=== PATIENT | female | born 1950 | race American Indian/Alaskan Native ===

== ENCOUNTER 2017-11-18 05:58 | Inpatient (IN) | payer MEDICARE ==
[2017-10-29 10:25] VITALS: BMI 23.8
[2017-11-18] MEDS ORDERED: Bupivacaine Liposomal Inj 20 ml INFIL ONE (07:29)
--- NOTE | 2017-11-18 07:33 | CP.PCM.HP ---
History of Present Illness - History of Present Illness History of Present Illness: 67F complains of right knee pain s/p TKR 09/21/2013, found to have radiographic loosening but negative septic workup, presents for revision TKR vs explant/ antibiotic spacer. No history of bleeding/clotting disorder, CAD/CVA/TIA/stent/seizure disorder Present on Admission - Present on Admission Any Indicators Present on Admission: No Past Patient History - Past Medical History & Family History Past Medical History?: Yes - Past Social History Smoking Status: Never Smoked - CARDIAC Hx Cardiac Disorders: Yes Hx Hypertension: Yes Hx Hypotension: Yes - PULMONARY Hx Respiratory Disorders: No - NEUROLOGICAL Hx Neurological Disorder: No - HEENT Hx HEENT Problems: No - RENAL Hx Chronic Kidney Disease: No - ENDOCRINE/METABOLIC Hx Endocrine Disorders: No - HEMATOLOGICAL/ONCOLOGICAL Hx Blood Disorders: No - INTEGUMENTARY Hx Dermatological Problems: No - MUSCULOSKELETAL/RHEUMATOLOGICAL Hx Musculoskeletal Disorders: Yes Hx Osteoarthritis: Yes Other/Comment: HX: INFECTION RIGHT KNEE ; RIGHT KNEE OA - GASTROINTESTINAL Hx Gastrointestinal Disorders: No - GENITOURINARY/GYNECOLOGICAL Hx Genitourinary Disorders: No - PSYCHIATRIC Hx Psychophysiologic Disorder: No - SURGICAL HISTORY Hx Surgeries: Yes Hx Section: Yes Hx Joint Replacement: Yes (RIGHT TOTAL KNEE REPLACEMENT ) - ANESTHESIA Hx Anesthesia: Yes Hx Anesthesia Reactions: No Hx Malignant Hyperthermia: No Has any member of the family had a problem w/ anesthesia?: No Meds Allergies/Adverse Reactions: Allergies Allergy/AdvReac Type Severity Reaction Status Date / Time No Known Allergies Allergy Verified 03/03/13 11:28 Physical Exam - Constitutional Appears: Well, No Acute Distress - Head Exam Head Exam: ATRAUMATIC, NORMAL INSPECTION - Respiratory Exam Respiratory Exam: NORMAL BREATHING PATTERN - Extremities Exam Additional comments: +ROM ankle/toes, sensation intact +DP/PT pulses calves soft NT neg homans incision intact well healed - Neurological Exam Neurological exam: Alert, Oriented x3 - Psychiatric Exam Psychiatric exam: Normal Affect, Normal Mood - Skin Skin Exam: Dry, Intact, Normal Color, Warm Results - Vital Signs Recent Vital Signs: Last Vital Signs Temp 97.7 F 11/18/17 06:19 Pulse 78 11/18/17 06:19 Resp 18 11/18/17 06:19 BP 145/76 11/18/17 06:19 Pulse Ox 100 11/18/17 06:19 Assessment & Plan (1) Periprosthetic osteolysis of internal prosthetic right knee joint Assessment and Plan: r/o aseptic vs infection NPO T&S for OR risks benefits alt explained to patient, patient verbalized understanding, consents to procedure Status: Acute
[2017-11-18] MEDS ORDERED: Propofol 10 mg/ml Inj (20 ML) ONE (08:01)
[2017-11-18] MEDS ORDERED: Midazolam 2 MG/2 ML VIAL ONE (08:01)
[2017-11-18] MEDS ORDERED: ceFAZolin IV 2 gm in Dextrose 0 GM/0 ML BAG IVPB ONE (08:14)
[2017-11-18] MEDS ORDERED: Tranexamic Acid 1,000 MG in Sodium Chloride 0.9% 50 ML IV SCH (08:15)
[2017-11-18] MEDS ORDERED: Clindamycin 600mg/50ml NS 600 MG/50 ML BAG IVPB ONE (08:49)
[2017-11-18] MEDS ORDERED: Sodium Chloride 0.9% 60 ML IV ONE (08:59)
[2017-11-18] MEDS: Bacitracin 150,000 UNIT in Sodium Chloride 0.9% Irrig 3,000 ML IR SCH ×2 (09:15→09:45)
[2017-11-18] MEDS: Tobramycin 1.2 gm Inj ONE ×2 (11:15→11:45)
[2017-11-18] MEDS: Vancomycin 1 g Inj ONE ×4 (11:15→11:45)
[2017-11-18] MEDS ORDERED: Bacitracin 150,000 UNIT in Sodium Chloride 0.9% Irrig 3,000 ML IR SCH (11:15)
[2017-11-18] MEDS ORDERED: Morphine 4 MG/ML VIAL ONE (11:17)
[2017-11-18] MEDS ORDERED: Rocuronium 10 mg/ml (10 ml) ONE (11:32)
[2017-11-18] MEDS ORDERED: HYDROmorphone 0.5 mg/0.5 ml ISec IVP PRN (12:21)
[2017-11-18 12:33] LABS: HEPATITIS B SURFACE AG Negative (NEGATIVE)
[2017-11-18] MEDS ORDERED: Neostigmine Methylsulfate 3mg/3ml Syringe IV ONE (12:38)
[2017-11-18 12:39] LABS: HEPATITIS A IGM NEGATIVE (NEGATIVE); HEPATITIS B CORE AB NEGATIVE (NEGATIVE)
[2017-11-18] MEDS ORDERED: Bupivacaine HCl 0.25% PF (10 ml) Inj ONE ×2 (12:46)
[2017-11-18 12:50] LABS: HEPATITIS C ANTIBODY NEGATIVE (NEGATIVE)
--- NOTE | 2017-11-18 13:52 | PCM.SURG1 ---
Surgeon's Initial Post Op Note - Surgeon's Notes Surgeon: Maria G Clancy MD Fraud Investigator: Alee Fraser PA-C Type of Anesthesia: General Endo Anesthesia Administered By: Dr. 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
[2017-11-18] MEDS ORDERED: Sodium Chloride 0.9% 1,000 ML IV SCH (14:00)
--- NOTE | 2017-11-18 14:14 | PCM.ANESB7 ---
Adductor Canal Block - Adductor Canal Block Date of Procedure: 11/18/17 Anesthiologist: Diana Marino Pre-Procedure Diagnosis: s/p right knee replacement Post-Procedure Diagnosis: right knee replacement revision Procedure Performed: Adductor Canal Block Right - Procedure Adductor Canal Block: The procedure was explained to the patient that it is for the post-operative pain management. Consent was obtained after a thorough discussion with the patient regarding the benefits and possible complications of local anesthetic adductor canal block of the femoral nerve. Standard monitors, as defined by the ASA, were applied to the patient. Time-out was held with the RR nurse to confirm the appropriate block. After applying supplemental oxygen, the patient was placed in supine position with and the operative leg was kept anatomically stable. The mid-thigh of the right lower extremity was exposed. The ultrasound transducer was then applied transversely along the medial aspect, about midway down the thigh and the femoral artery and vein were identified in appropriate relation with the sartorius muscle. At this time, the femoral nerve was visualized lateral to the femoral artery within the canal. After thorough identification, this area area was prepped with Chloroprep solution three times and 1 % Lidocaine was injected subcutaneously for topical anesthesia. At this point, a #22 gauge Stimuplex 4-inch needle was inserted in-plane in a [id number] orientation, and advanced toward the femoral nerve. Advancement was performed carefully under direct ultrasound visualization. After negative aspiration, __30___cc of 0.25_% Bupivacaine_was injected. Under ultrasound guidance the local anesthetics were observed spreading around the femoral nerve. The needle was removed intact and sterile dressing was applied. The patient had stable vital signs, was conscious and in no apparent distress. The patient tolerated the femoral nerve block well with stable vital signs.
[2017-11-18] MEDS: Oxycodone/Acetaminophen 5/325 mg Tab PO PRN (18:21)
[2017-11-18] MEDS: ceFAZolin IV 2 gm in Dextrose 2 GM/50 ML BAG IVPB SCH ×2 (18:21→22:04)
--- NOTE | 2017-11-18 20:27 | CP.PCM.CON ---
History of Present Illness - History of Present Illness History of Present Illness: INFECTIOUS DISEASE CONSULT; HPI 67F complains of right knee pain s/p TKR 09/21/2013, found to have radiographic loosening but negative septic workup, presents for revision TKR vs explant/ antibiotic spacer. No history of bleeding/clotting disorder, CAD/CVA/TIA/stent/seizure disorder, DM. PATIENT DOES HAVE HISTORY OF OSTEOARTHRITIS. HX LIMITED PATIENT DROWSY POSTOPERATIVELY. PATIENT IS STATUS POST RIGHT TKR AND EXPLANT AND PLACEMENT OF ANTIBIOTIC SPACER RIGHT KNEE ON 11/18/17. REPORTED BY THE STAFF, PATIENT RECEIVED 1 DOSE OF rOCEPHIN 1 G, CLINDAMYCIN 600 MG ONE DOSE IN OR AND PRESENTLY STARTED ON ANCEF 2 G EVERY 8 HOURLY. INFECTIOUS DISEASE CONSULTATION REQUESTED BY orthopedic surgeon DR. MARIELLA BARAHONA. PMH; ABOVE. SH ; NO HISTORY OF SMOKING OR DRINKING. NO HX OF SUBSTANCE ABUSE. lIVES WITH FAMILY HER . ALLERGIES; NKA. MEDS ; SEE MARS. on Ancef 2 g IV piggyback every 8 hourly1. Review of Systems - Review of Systems Systems not reviewed;Unavailable: Altered Mental Status, Other (POSTOPERATIVE DROWSY.) Past Patient History - Past Medical History & Family History Past Medical History?: Yes - Past Social History Smoking Status: Never Smoked - CARDIAC Hx Cardiac Disorders: Yes Hx Hypertension: Yes Hx Hypotension: Yes - PULMONARY Hx Respiratory Disorders: No - NEUROLOGICAL Hx Neurological Disorder: No - HEENT Hx HEENT Problems: No - RENAL Hx Chronic Kidney Disease: No - ENDOCRINE/METABOLIC Hx Endocrine Disorders: No - HEMATOLOGICAL/ONCOLOGICAL Hx Blood Disorders: No - INTEGUMENTARY Hx Dermatological Problems: No - MUSCULOSKELETAL/RHEUMATOLOGICAL Hx Musculoskeletal Disorders: Yes Hx Falls: No Hx Osteoarthritis: Yes Other/Comment: HX: INFECTION RIGHT KNEE ; RIGHT KNEE OA - GASTROINTESTINAL Hx Gastrointestinal Disorders: No - GENITOURINARY/GYNECOLOGICAL Hx Genitourinary Disorders: No - PSYCHIATRIC Hx Psychophysiologic Disorder: No Hx Substance Use: No - SURGICAL HISTORY Hx Surgeries: Yes Hx Section: Yes Hx Joint Replacement: Yes (RIGHT TOTAL KNEE REPLACEMENT ) - ANESTHESIA Hx Anesthesia: Yes Hx Anesthesia Reactions: No Hx Malignant Hyperthermia: No Has any member of the family had a problem w/ anesthesia?: No Meds Allergies/Adverse Reactions: Allergies Allergy/AdvReac Type Severity Reaction Status Date / Time No Known Allergies Allergy Verified 03/03/13 11:28 - Medications Medications: Current Medications Acetaminophen (Tylenol 325mg Tab) 650 mg PO Q4 PRN PRN Reason: Fever 101 degrees fahrenheit Amlodipine Besylate (Norvasc) 10 mg PO DAILY [facility] Docusate Sodium (Colace) 100 mg PO BID [facility] Last Admin: 11/18/17 18:21 Dose: 100 mg Enoxaparin Sodium (Lovenox) 40 mg SC DAILY [facility] Hydrochlorothiazide (Microzide) 12.5 mg PO DAILY [facility] Hydromorphone HCl (Dilaudid) 0.5 mg IVP Q4H PRN PRN Reason: Pain, severe (8-10) Cefazolin Sodium/Dextrose (Ancef Iv 2 Gm Duplex) 2 gm in 50 mls @ 100 mls/hr IVPB Q8H [facility] Stop: 11/18/17 23:29 Last Admin: 11/18/17 18:21 Dose: 100 mls/hr Sodium Chloride (Sodium Chloride 0.9%) 1,000 mls @ 50 mls/hr IV .Q20H [facility] Stop: 11/19/17 09:59 Losartan Potassium (Cozaar) 50 mg PO DAILY [facility] [place] Multivitamins (Hexavitamin) 1 tab PO DAILY [facility] Oxycodone/Acetaminophen (Percocet 5/325 Mg Tab) 1 tab PO Q4 PRN PRN Reason: Pain, moderate (4-7) Stop: 11/21/17 13:56 Last Admin: 11/18/17 18:21 Dose: 1 tab Rosuvastatin Calcium (Crestor) 10 mg PO [facility] Physical Exam - Constitutional Appears: No Acute Distress - Head Exam Head Exam: NORMAL INSPECTION - Eye Exam Eye Exam: PERRL - ENT Exam ENT Exam: Mucous Membranes Dry - Neck Exam Neck exam: Positive for: Normal Inspection - Respiratory Exam Respiratory Exam: Clear to Auscultation Bilateral, Prolonged Expiratory Phase ( may) - Cardiovascular Exam Cardiovascular Exam: REGULAR RHYTHM, +S1, +S2 (ALCOHOL ON MIDLINE WITHOUT iN HIS USUAL. aNALGESICS.) - GI/Abdominal Exam GI & Abdominal Exam: Normal Bowel Sounds, Soft - Extremities Exam Extremities exam: Negative for: calf tenderness (RT LEG POST OPERATIVE soft cast.) - Neurological Exam Neurological exam: Altered (drowsy postoperative period) - Psychiatric Exam Psychiatric exam: Flat Affect - Skin Skin Exam: Normal Color, Warm Results - Vital Signs Recent Vital Signs: Last Vital Signs Temp 98.1 F 11/18/17 17:14 Pulse 80 11/18/17 17:14 Resp 20 11/18/17 17:14 BP 97/52 L 11/18/17 17:14 Pulse Ox 100 11/18/17 17:14 - Labs Labs: Laboratory Results - last 24 hr 11/18/17 11/18/17 11/18/17 07:16 11:27 11:27 RPR Nonreactive Hepatitis A IgM Ab Negative Hep Bs Antigen Negative Hep Bs Antibody Hep B Core IgM Ab Negative Hepatitis C Antibody Negative HIV 1&2 Antibody Screen Blood Type O POSITIVE Antibody Screen Negative 11/18/17 11/18/17 11:27 11:27 RPR Hepatitis A IgM Ab Hep Bs Antigen Hep Bs Antibody Negative Hep B Core IgM Ab Hepatitis C Antibody HIV 1&2 Antibody Screen Negative Blood Type Antibody Screen Assessment & Plan (1) Aftercare following explantation of joint prosthesis, staged procedure Status: Acute (2) Periprosthetic osteolysis of internal prosthetic right knee joint Status: Acute - Assessment and Plan (Free Text) Assessment: IMPRESSION; RT.TKR/PROSTHETIC JOINT INFECTION/OSTEOLYSES OF THE JOINT. S/P EXPLANTATION AND PLACEMENT OF ANTIBIOTIC SPACER RT. KNEE. 11/18/17. PLAN; PANCULTURES. ESR CRP. LFT. UA/URINE CULTURES TISSUE CULTURES RIGHT KNEE PENDING. DISCONTINUE iv ANCEF. CONTINUE iv ROCEPHIN 1 G EVERY 12 HOURLY 11/18/17 fOR BROADER GRAM-NEGATIVE COVERAGE ADD IV VANCOMYCIN 1 G EVERY 24 HOURLY FOR STAPH/AND MRSA COVERAGE. FOLLOW-UP TISSUE CULTURES FROM RIGHT KNEE OPERATIVELY. WILL FOLLOW ALONG WITH YOU AND MAKE FURTHER RECOMMENDATIONS NEEDED. CASE DISCUSSED WITH THE STAFF. AGREE WITH PICC LINE PLACEMENT.
--- NOTE | 2017-11-19 00:20 | OP ---
PROCEDURE DATE: 11/18/2017 PREOPERATIVE DIAGNOSIS: Status post failed right total knee replacement with possible infection. POSTOPERATIVE DIAGNOSIS: Infected right total knee arthroplasty. PROCEDURE: Explant of right total knee arthroplasty, irrigation and debridement and insertion of antibiotic spacer. SURGEON: Félix Clancy MD. FANS CLERK: Dr. Clancy was assisted by Ana Fraser PA-C. Ms. Fraser was scrubbed and present throughout the entire case and assisted in patient positioning, retraction and wound closure. TYPE OF ANESTHESIA: General. COMPLICATIONS: None. ESTIMATED BLOOD LOSS: 250 mL. TOURNIQUET TIME: 140 minutes at 300 mmHg. INDICATIONS FOR THE PROCEDURE: This is a 67-year-old female, who approximately little longer than 4 years ago underwent a right total knee replacement. Postoperatively, patient developed some arthrofibrosis with some loss of range of motion. She subsequently was recently seen with complaints of right knee pain again and loss of range of motion. Radiographically, patient was noted to have some osteolysis around the femoral component. Preoperative was questionable for infection and recommendations were for removal of the implant with an intraoperative biopsy and possible reimplantation versus antibiotic spacer. The risks, benefits and alternatives of the procedures were discussed with the patient and informed consent was obtained. DESCRIPTION OF PROCEDURE: After surgical site was finally verified in the preoperative holding area, the patient was taken to the operating room and placed supine on the operating room table. After administration of general anesthesia, patient received 1 g of Rocephin and 600 mg of clindamycin IV. Medrano catheter was inserted. Tourniquet was placed about the right thigh. Care was taken to make sure all bony prominences and nerves were well padded and protected and the right lower extremity was prepped and draped in usual sterile fashion. Previous incision was re-incised and medial parapatellar arthrotomy was performed. No significant fluid was appreciated. No gross purulence was appreciated. At this point, using a combination of osteotomes and rongeur, the previous implant was removed. Three deep soft tissue biopsies were done, one underneath the medial femoral component, one posterior to the patellar component as well as one on the tibia, these were passed off for frozen section. In the interim, while awaiting for these results, debridement was performed, removing any nonviable-appearing tissue or any loose cement. Patellar component was also removed. At this point, call from the pathology department determined that in one of the frozen sections, there were 12 neutrophils per high-power filed. At this point, recommendation was made for insertion of an antibiotic spacer for possible staged reimplantation. On the back table, an antibiotic spacer was prepared using vancomycin, gentamicin and tobramycin powder. Once the spacer had been made, a static spacer was inserted and at this point the tourniquet was inflated, any obvious bleeding was cauterized. The arthrotomy was closed using #1 Vicryl suture. The subcutaneous tissue was closed using 0 Vicryl and 2-0 Vicryl suture and the skin was closed using 3-0 nylon. A ANGEL dressing was applied and a knee immobilizer was placed. Patient was awakened from the procedure, taken to the recovery room in stable condition. Félix Clancy MD
[2017-11-19 02:19] LABS: SQUAMOUS EPITHIAL < 1 /hpf (0-5); URINE BACTERIA RARE (<OCC); URINE BILIRUBIN NEGATIVE (NEGATIVE); URINE BLOOD 2+ (NEGATIVE); URINE COLOR Yellow (YELLOW); URINE GLUCOSE (UA) NORMAL (Normal); URINE LEUKOCYTE ESTERASE NEG Leu/uL (Negative); URINE NITRATE NEGATIVE (NEGATIVE); URINE PROTEIN 1+ mg/dL (NEGATIVE); URINE UROBILINOGEN NORMAL mg/dL (0.2-1.0)
[2017-11-19 02:28] LABS: URINE CLARITY Hazy (Clear)
[2017-11-19 07:29] LABS: MEAN CORPUSCULAR HEMOGLOBIN 25.5 pg (27.0-31.0); MEAN CORPUSCULAR HGB CONC 32.7 g/dL (33.0-37.0); MEAN PLATELET VOLUME 7.6 fL (7.2-11.7); RBC 2.73 Mil/uL (3.80-5.20); RED CELL DISTRIBUTION WIDTH 15.4 % (11.5-14.5)
[2017-11-19 07:30] LABS: MEAN CELL VOLUME 77.8 fL (81.0-99.0); WHITE BLOOD COUNT 8.2 K/uL (4.8-10.8)
[2017-11-19 08:10] LABS: ALB/GLOB RATIO 0.9 (1.0-2.1); ALT/SGPT 25 U/L (9-52); AST/SGOT 41 U/L (14-36); BILIRUBIN,DIRECT 0.2 mg/dL (0.0-0.4); BLOOD UREA NITROGEN 11 mg/dL (7-17); CALCIUM 8.3 mg/dl (8.6-10.4); GFR AFRICAN-AMERICAN > 60; GFR NON-AFRICAN AMERICAN > 60
[2017-11-19] MEDS: Vancomycin 1 gm/NS 200 ml 1 GM/200 ML BAG IVPB SCH (09:30)
[2017-11-19] MEDS: Enoxaparin 40 mg Syringe SC SCH ×2 (09:56→10:04)
[2017-11-19] MEDS: Multiple Vitamins Tab PO SCH (09:56)
--- NOTE | 2017-11-19 10:43 | CP.PCM.PN ---
Subjective - Date & Time of Evaluation Date of Evaluation: 11/19/17 Time of Evaluation: 10:42 - Subjective Subjective: Pt awake, alert. Adequate pain control. VSS RLE: immobilizer in place ANGEL dressing with good seal NVI distally Hg 7.0 POD#1 Transfuse 2 units PRBCs follow OR cultures will likely need PIC line d/c planning Objective - Vital Signs/Intake and Output Vital Signs (last 24 hours): Temp Pulse Resp BP Pulse Ox 98.4 F 78 20 132/70 100 11/19/17 08:34 11/19/17 08:34 11/19/17 08:34 11/19/17 10:00 11/19/17 08:34 Intake and Output: 11/19/17 11/19/17 06:59 18:59 Intake Total 500 Output Total 400 Balance 100 - Medications Medications: Current Medications Acetaminophen (Tylenol 325mg Tab) 650 mg PO Q4 PRN PRN Reason: Fever 101 degrees fahrenheit Amlodipine Besylate (Norvasc) 10 mg PO DAILY [facility] Last Admin: 11/19/17 09:57 Dose: 10 mg Docusate Sodium (Colace) 100 mg PO BID [facility] Last Admin: 11/19/17 09:57 Dose: 100 mg Enoxaparin Sodium (Lovenox) 40 mg SC DAILY [facility] Last Admin: 11/19/17 10:04 Dose: Not Given Hydrochlorothiazide (Microzide) 12.5 mg PO DAILY [facility] Last Admin: 11/19/17 09:57 Dose: 12.5 mg Hydromorphone HCl (Dilaudid) 0.5 mg IVP Q4H PRN PRN Reason: Pain, severe (8-10) Ceftriaxone Sodium 1 gm/ (Sodium Chloride) 100 mls @ 100 mls/hr IVPB Q12H [facility] Last Admin: 11/19/17 00:45 Dose: 100 mls/hr Vancomycin/Sodium Chloride (Vancomycin 1 Gm/Ns 200 Ml) 1 gm in 200 mls @ 133 mls/hr IVPB Q24H [facility] Stop: 11/24/17 10:31 Losartan Potassium (Cozaar) 50 mg PO DAILY [facility] Last Admin: 11/19/17 09:57 Dose: 50 mg Multivitamins (Hexavitamin) 1 tab PO DAILY [facility] Last Admin: 11/19/17 09:56 Dose: 1 tab Oxycodone/Acetaminophen (Percocet 5/325 Mg Tab) 1 tab PO Q4 PRN PRN Reason: Pain, moderate (4-7) Stop: 11/21/17 13:56 Last Admin: 11/18/17 18:21 Dose: 1 tab Rosuvastatin Calcium (Crestor) 10 mg PO HS [facility] - Labs Labs: 11/19/17 07:23 11/19/17 07:23
[2017-11-19 11:31] LABS: HEMOGLOBIN 7.3 g/dL (11.0-16.0); MEAN CELL VOLUME 78.1 fL (81.0-99.0); MEAN CORPUSCULAR HEMOGLOBIN 25.2 pg (27.0-31.0); MEAN CORPUSCULAR HGB CONC 32.2 g/dL (33.0-37.0); MEAN PLATELET VOLUME 8.2 fL (7.2-11.7); RBC 2.88 Mil/uL (3.80-5.20); RED CELL DISTRIBUTION WIDTH 15.4 % (11.5-14.5)
--- NOTE | 2017-11-19 12:35 | RAD ---
HISTORY: verify right PICC COMPARISON: Chest x-ray performed 11/19/17 at 7:46 a.m. TECHNIQUE: Chest, one view. FINDINGS: Right-sided PICC extends expected location of the SVC. LUNGS: Linear atelectasis, left lung base. Mild biapical pleural thickening. No focal consolidation. Please note that chest x-ray has limited sensitivity for the detection of pulmonary masses. PLEURA: No significant pleural effusion identified. No definite pneumothorax . CARDIOVASCULAR: Heart size appears top normal. OSSEOUS STRUCTURES: No acute osseous abnormality identified. VISUALIZED UPPER ABDOMEN: Unremarkable. OTHER FINDINGS: None. IMPRESSION: Right-sided PICC extends to the expected location of the SVC. Linear atelectasis, left lung base. Mild biapical pleural thickening.
--- NOTE | 2017-11-19 13:26 | RAD ---
HISTORY: BASELINE COMPARISON: Chest radiograph dated 10/29/2017. FINDINGS: LUNGS: No active pulmonary disease. PLEURA: No significant pleural effusion identified, no pneumothorax apparent. CARDIOVASCULAR: No sclerotic aortic calcifications. Cardiomediastinal silhouette stably enlarged. OSSEOUS STRUCTURES: Unchanged. VISUALIZED UPPER ABDOMEN: Normal. OTHER FINDINGS: None. IMPRESSION: No active disease.
--- NOTE | 2017-11-19 13:55 | RAD ---
PROCEDURE: Right Knee Radiographs. HISTORY: s/p prosthesis removal COMPARISON: 09/21/2013 FINDINGS: BONES: No acute fracture. Status post removal of right knee prosthesis. There is temporary cement mass seen at the joint status post removal of prosthesis. There is thick periosteal reaction seen along the distal lateral femoral cortex, nonspecific. There is fluid in the region of the suprapatellar bursa as well as intra-articular gas consistent with recent surgery. JOINTS: As above JOINT EFFUSION: As above OTHER FINDINGS: None. IMPRESSION: Status post removal of right knee prosthesis with temporary cement remaining in the joint. Other postoperative changes. Thick periosteal reaction along the distal lateral femoral cortex, nonspecific.
[2017-11-19] MEDS ORDERED: Ergocalciferol 50,000 Intl Units Cap PO SCH (16:30)
[2017-11-19] MEDS: Oxycodone/Acetaminophen 5/325 mg Tab PO PRN (18:15)
--- NOTE | 2017-11-19 20:44 | CP.PCM.PN ---
Subjective - Date & Time of Evaluation Date of Evaluation: 11/19/17 Time of Evaluation: 20:44 - Subjective Subjective: # POD 1 PATIENT AWAKE AND ALERT, TMAX 100.3 VSS PAIN UNDER CONTROL RIGHT LOWER EXTREMITY IMMOBILIZER IN PLACE. H/H - DROPPED TO 7.3. PATIENT FOR BLOOD TRANSFUSION 2 UNITS PER dR. BARAHONA S/P PICC LINE -RIGHT UPPER ARM .LABS; wbc 9.0 PLATELETS ADEQUATE cREATININE 0.6/bun 11 25-HYDROXY VITAMIN A 26.4 LOW lftS NORMAL. TISSUE CULTURE NEGATIVE GROWTH FOR 24 HOURS. PATIENT ON iv ANTIBIOTICS EMPIRICALLY IV CEFTRIAXONE 1 G EVERY 12 HOURLY-11/18/17 IV VANCOMYCIN 1 G EVERY 24 HOURLY.- 11/18/17. Objective - Vital Signs/Intake and Output Vital Signs (last 24 hours): Temp Pulse Resp BP Pulse Ox 100.3 F H 92 H 20 164/65 H 100 11/19/17 18:50 11/19/17 15:49 11/19/17 15:49 11/19/17 15:49 11/19/17 15:49 Intake and Output: 11/19/17 11/20/17 18:59 06:59 Intake Total 600 Output Total 580 Balance 20 - Medications Medications: Current Medications Acetaminophen (Tylenol 325mg Tab) 650 mg PO Q4 PRN PRN Reason: Fever 101 degrees fahrenheit Last Admin: 11/19/17 18:50 Dose: 650 mg Amlodipine Besylate (Norvasc) 10 mg PO DAILY [facility] Last Admin: 11/19/17 09:57 Dose: 10 mg Docusate Sodium (Colace) 100 mg PO BID [facility] Last Admin: 11/19/17 18:14 Dose: 100 mg Enoxaparin Sodium (Lovenox) 40 mg SC DAILY [facility] Last Admin: 11/19/17 10:04 Dose: Not Given Ergocalciferol (Drisdol 50,000 Intl Units Cap) 1 cap PO Q7D [facility] Last Admin: 11/19/17 18:15 Dose: 1 cap Hydrochlorothiazide (Microzide) 12.5 mg PO DAILY [facility] Last Admin: 11/19/17 09:57 Dose: 12.5 mg Hydromorphone HCl (Dilaudid) 0.5 mg IVP Q4H PRN PRN Reason: Pain, severe (8-10) Ceftriaxone Sodium 1 gm/ (Sodium Chloride) 100 mls @ 100 mls/hr IVPB Q12H [facility] Last Admin: 11/19/17 10:30 Dose: 100 mls/hr Vancomycin/Sodium Chloride (Vancomycin 1 Gm/Ns 200 Ml) 1 gm in 200 mls @ 133 mls/hr IVPB Q24H [facility] Stop: 11/24/17 10:31 Last Admin: 11/19/17 09:30 Dose: 133 mls/hr Losartan Potassium (Cozaar) 50 mg PO DAILY [facility] Last Admin: 11/19/17 09:57 Dose: 50 mg Multivitamins (Hexavitamin) 1 tab PO DAILY [facility] Last Admin: 11/19/17 09:56 Dose: 1 tab Oxycodone/Acetaminophen (Percocet 5/325 Mg Tab) 1 tab PO Q4 PRN PRN Reason: Pain, moderate (4-7) Stop: 11/21/17 13:56 Last Admin: 11/19/17 18:15 Dose: 1 tab Rosuvastatin Calcium (Crestor) 10 mg PO HS [facility] - Labs Labs: 11/19/17 11:20 11/19/17 07:23 - Constitutional Appears: No Acute Distress - Head Exam Head Exam: NORMAL INSPECTION - Eye Exam Eye Exam: EOMI, PERRL - ENT Exam ENT Exam: Normal Oropharynx - Neck Exam Neck Exam: Normal Inspection - Respiratory Exam Respiratory Exam: Clear to Ausculation Bilateral - Cardiovascular Exam Cardiovascular Exam: REGULAR RHYTHM, +S1, +S2 - GI/Abdominal Exam GI & Abdominal Exam: Soft, Normal Bowel Sounds - Neurological Exam Neurological Exam: Awake, CN II-XII Intact, Oriented x3 - Psychiatric Exam Psychiatric exam: Normal Mood - Skin Skin Exam: Pallor, Warm Assessment and Plan (1) Aftercare following explantation of joint prosthesis, staged procedure Status: Acute (2) Periprosthetic osteolysis of internal prosthetic right knee joint Status: Acute - Assessment and Plan (Free Text) Plan: IMPRESSION; -RT.TKR/PROSTHETIC JOINT INFECTION/OSTEOLYSES OF THE JOINT. -S/P EXPLANTATION AND PLACEMENT OF ANTIBIOTIC SPACER RT. KNEE. 11/18/17. - HX HTN. - HYPERCHOLESTEROLEMIA. -OSTEOARTHRITIS B/L KNEES. -VITAMIN d DEFICIENCY. PLAN; FOR BLOOD TRANSFUSION 2 UNITS PRBCS TODAY. TISSUE CULTURES RIGHT KNEE- PENDING. CONTINUE iv ROCEPHIN 1 G EVERY 12 HOURLY 11/18/17 fOR BROADER GRAM-NEGATIVE COVERAGE ADD IV VANCOMYCIN 1 G EVERY 24 HOURLY FOR STAPH/AND MRSA COVERAGE. WILL NEED VITAMIN d SUPPLEMENT 50,000 UNITS 1 TABLET WEEKLY X 3 MONTHS WILL DISCUSS WITH Irene NORTH IF PATIENT EVER HAD MRSA -INFECTION/OR COLONIZATION. WILL FOLLOW ALONG WITH YOU AND MAKE FURTHER RECOMMENDATIONS NEEDED.
[2017-11-20] MEDS: Enoxaparin 40 mg Syringe SC SCH (09:40)
[2017-11-20] MEDS: Vancomycin 1 gm/NS 200 ml 1 GM/200 ML BAG IVPB SCH (09:40)
[2017-11-20] MEDS: Multiple Vitamins Tab PO SCH (09:40)
[2017-11-20] MEDS: Oxycodone/Acetaminophen 5/325 mg Tab PO PRN (09:43)
[2017-11-20 11:31] LABS: MEAN CELL VOLUME 79.1 fL (81.0-99.0); MEAN CORPUSCULAR HEMOGLOBIN 26.6 pg (27.0-31.0); MEAN CORPUSCULAR HGB CONC 33.7 g/dL (33.0-37.0); MEAN PLATELET VOLUME 7.9 fL (7.2-11.7); RBC 3.71 Mil/uL (3.80-5.20); WHITE BLOOD COUNT 11.3 K/uL (4.8-10.8)
[2017-11-20 11:36] LABS: HEMOGLOBIN 9.9 g/dL (11.0-16.0)
[2017-11-20 11:45] LABS: ALB/GLOB RATIO 0.9 (1.0-2.1); ALBUMIN 3.2 g/dL (3.5-5.0); ALT/SGPT 25 U/L (9-52); AST/SGOT 35 U/L (14-36); BILIRUBIN,DIRECT 0.3 mg/dL (0.0-0.4); BLOOD UREA NITROGEN 6 mg/dL (7-17); CALCIUM 8.5 mg/dl (8.6-10.4); GFR AFRICAN-AMERICAN > 60; GFR NON-AFRICAN AMERICAN > 60
--- NOTE | 2017-11-20 13:35 | CP.PCM.PN ---
Subjective - Date & Time of Evaluation Date of Evaluation: 11/20/17 Time of Evaluation: 13:32 - Subjective Subjective: Patient states pain is well controlled. Denies CP/SOB/dizziness. Objective - Vital Signs/Intake and Output Vital Signs (last 24 hours): Temp Pulse Resp BP Pulse Ox 98.1 F 79 20 144/71 100 11/20/17 07:50 11/20/17 07:50 11/20/17 07:50 11/20/17 07:50 11/20/17 00:00 Intake and Output: 11/20/17 11/20/17 06:59 18:59 Intake Total 1210 325 Balance 1210 325 - Medications Medications: Current Medications Acetaminophen (Tylenol 325mg Tab) 650 mg PO Q4 PRN PRN Reason: Fever 101 degrees fahrenheit Last Admin: 11/19/17 18:50 Dose: 650 mg Amlodipine Besylate (Norvasc) 10 mg PO DAILY [facility] Last Admin: 11/20/17 09:40 Dose: 10 mg Docusate Sodium (Colace) 100 mg PO BID [facility] Last Admin: 11/20/17 09:40 Dose: 100 mg Enoxaparin Sodium (Lovenox) 40 mg SC DAILY [facility] Last Admin: 11/20/17 09:40 Dose: 40 mg Ergocalciferol (Drisdol 50,000 Intl Units Cap) 1 cap PO Q7D [facility] Last Admin: 11/19/17 18:15 Dose: 1 cap Hydrochlorothiazide (Microzide) 12.5 mg PO DAILY [facility] Last Admin: 11/20/17 09:40 Dose: 12.5 mg Hydromorphone HCl (Dilaudid) 0.5 mg IVP Q4H PRN PRN Reason: Pain, severe (8-10) Ceftriaxone Sodium 1 gm/ (Sodium Chloride) 100 mls @ 100 mls/hr IVPB Q12H [facility] Last Admin: 11/20/17 11:19 Dose: 100 mls/hr Vancomycin/Sodium Chloride (Vancomycin 1 Gm/Ns 200 Ml) 1 gm in 200 mls @ 133 mls/hr IVPB Q24H [facility] Stop: 11/24/17 10:31 Last Admin: 11/20/17 09:40 Dose: 133 mls/hr Losartan Potassium (Cozaar) 50 mg PO DAILY [facility] Last Admin: 11/20/17 09:41 Dose: 50 mg Multivitamins (Hexavitamin) 1 tab PO DAILY [facility] Last Admin: 11/20/17 09:40 Dose: 1 tab Oxycodone/Acetaminophen (Percocet 5/325 Mg Tab) 1 tab PO Q4 PRN PRN Reason: Pain, moderate (4-7) Stop: 11/21/17 13:56 Last Admin: 11/20/17 09:43 Dose: 1 tab Potassium Chloride (K-Dur 20 Meq Er Tab) 20 meq PO ONCE ONE Stop: 11/21/17 14:01 Rosuvastatin Calcium (Crestor) 10 mg PO HS [facility] Last Admin: 11/19/17 23:22 Dose: 10 mg - Labs Labs: 11/20/17 11:27 11/20/17 11:27 - Extremities Exam Additional comments: dressing changed. +ROM ankle/toes, sensation intact +DP/PT pulses calves soft NT neg homans incision dry/intact, no erythema. 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 Rush, agrees with above cont VTE proph Status: Acute
[2017-11-20] MEDS ORDERED: Potassium Chloride 20 mEq ER Tab PO ONE (14:00)
--- NOTE | 2017-11-20 22:28 | CP.PCM.PN ---
Subjective - Date & Time of Evaluation Date of Evaluation: 11/20/17 Time of Evaluation: 22:28 - Subjective Subjective: Subjective: # POD 1 PATIENT AWAKE AND ALERT, TMAX 100.3 VSS PAIN UNDER CONTROL RIGHT LOWER EXTREMITY IMMOBILIZER IN PLACE. S/P PICC LINE -RIGHT UPPER ARM 11/19/17 .LABS; 25-HYDROXY VITAMIN A 26.4 LOW TISSUE CULTURE NEGATIVE GROWTH FOR 48 HOURS. PATIENT ON iv ANTIBIOTICS EMPIRICALLY IV CEFTRIAXONE 1 G EVERY 12 HOURLY-11/18/17 IV VANCOMYCIN 1 G EVERY 24 HOURLY.- 11/18/17. reported by CORE WINDER MACHINE OPERATOR. MS JUNE, MS VANDA (ORTHO PA ) PATIENT NEVER HAD mrsa/OR STREP INFECTION ONLY LOOSENING OF THE PROSTHESIS. pATIENT IS NOT COLONIZED WITH mrsa IN THE NARES. DISCUSSED WITH STAFF IF TISSUE CULTURES RT. KNEE REMAIN NEGATIVE FOR 72 HOURS CAN SWITCH TO iv ANCEF 2 G EVERY 8 HOURLY X 6WKS-F/U PO KEFLEX 500MG POTID X 2WK'S Objective - Vital Signs/Intake and Output Vital Signs (last 24 hours): Temp Pulse Resp BP Pulse Ox 100.3 F H 66 20 136/68 98 11/20/17 15:00 11/20/17 15:00 11/20/17 15:00 11/20/17 15:00 11/20/17 15:00 Intake and Output: 11/20/17 11/21/17 18:59 06:59 Intake Total 325 Balance 325 - Medications Medications: Current Medications Acetaminophen (Tylenol 325mg Tab) 650 mg PO Q4 PRN PRN Reason: Fever 101 degrees fahrenheit Last Admin: 11/19/17 18:50 Dose: 650 mg Amlodipine Besylate (Norvasc) 10 mg PO DAILY [facility] Last Admin: 11/20/17 09:40 Dose: 10 mg Docusate Sodium (Colace) 100 mg PO BID [facility] Last Admin: 11/20/17 18:36 Dose: 100 mg Enoxaparin Sodium (Lovenox) 40 mg SC DAILY [facility] Last Admin: 11/20/17 09:40 Dose: 40 mg Ergocalciferol (Drisdol 50,000 Intl Units Cap) 1 cap PO Q7D [facility] Last Admin: 11/19/17 18:15 Dose: 1 cap Hydrochlorothiazide (Microzide) 12.5 mg PO DAILY [facility] Last Admin: 11/20/17 09:40 Dose: 12.5 mg Hydromorphone HCl (Dilaudid) 0.5 mg IVP Q4H PRN PRN Reason: Pain, severe (8-10) Ceftriaxone Sodium 1 gm/ (Sodium Chloride) 100 mls @ 100 mls/hr IVPB Q12H [facility] Last Admin: 11/20/17 11:19 Dose: 100 mls/hr Vancomycin/Sodium Chloride (Vancomycin 1 Gm/Ns 200 Ml) 1 gm in 200 mls @ 133 mls/hr IVPB Q24H [facility] Stop: 11/24/17 10:31 Last Admin: 11/20/17 09:40 Dose: 133 mls/hr Losartan Potassium (Cozaar) 50 mg PO DAILY [facility] Last Admin: 11/20/17 09:41 Dose: 50 mg Multivitamins (Hexavitamin) 1 tab PO DAILY [facility] Last Admin: 11/20/17 09:40 Dose: 1 tab Oxycodone/Acetaminophen (Percocet 5/325 Mg Tab) 1 tab PO Q4 PRN PRN Reason: Pain, moderate (4-7) Stop: 11/21/17 13:56 Last Admin: 11/20/17 09:43 Dose: 1 tab Rosuvastatin Calcium (Crestor) 10 mg PO HS [facility] Last Admin: 11/19/17 23:22 Dose: 10 mg - Labs Labs: 11/20/17 11:27 11/20/17 11:27 - Constitutional Appears: No Acute Distress - Head Exam Head Exam: NORMAL INSPECTION - Eye Exam Eye Exam: EOMI, PERRL - ENT Exam ENT Exam: Normal Oropharynx - Neck Exam Neck Exam: Normal Inspection - Respiratory Exam Respiratory Exam: Clear to Ausculation Bilateral - GI/Abdominal Exam GI & Abdominal Exam: Soft, Normal Bowel Sounds - Extremities Exam Extremities Exam: Normal Capillary Refill (DRESSING CHANGED TODAY. REPORTED INCISION WOUND IS CLEAN,DRY AND INTACT.). 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 MS JUNE, MS VANDA (ORTHO PA ) PATIENT NEVER HAD mrsa/OR STREP INFECTION ONLY LOOSENING OF THE PROSTHESIS. PATIENT IS NOT COLONIZED WITH mrsa IN THE NARES. * DISCUSSED WITH STAFF IF TISSUE CULTURES RIGHT KNEE REMAIN NEGATIVE FOR 72 HOURS CAN SWITCH TO iv ANCEF 2 G EVERY 8 HOURLY X 6WKS- F/U PO KEFLEX 500MG POTID X 2WK'S. ADD PO BACID 1 CAPSULE BID F/U RENAL FUNCTIONS CLOSELY WITH CBC WITH DIFFERENTIAL WEEKLY FOR 6 WEEKS WHILE IN REHABILITATION. WILL FOLLOW THE PATIENT WHILE IN HOSPITAL.
--- NOTE | 2017-11-21 00:01 | CON ---
DATE: CARDIOLOGY CONSULTATION REQUESTING PHYSICIAN: Félix Clancy MD HISTORY OF PRESENT ILLNESS: The patient is a 67-year-old female, who was brought in with a history of surgery in the right knee. The patient was seen by me preoperatively and was cleared. She has a history of hypertension and high cholesterol. PERSONAL HISTORY: Does not smoke. Does not drink. . Lives with her . Exercise by walking 30 minutes a day. PAST MEDICAL HISTORY: Negative. PAST SURGICAL HISTORY: In the past was again surgery on the knee. FAMILY HISTORY: Negative for premature coronary artery disease. MEDICATIONS: At home include Diovan/HCT 80/12.5 mg, Lipitor 20 mg, naproxen on p.r.n. basis, and Norvasc 10 mg. ALLERGIES: DENIED. REVIEW OF SYSTEMS: CONSTITUTIONAL: No fever. No generalized weakness. EYES: No eye problems. EARS: No hearing loss. PULMONARY: No cough. CARDIAC: Denies any chest pains. Walks several blocks at the low-slope pace. NEUROLOGIC: Negative for seizures,TIA, and CVAs. MUSCULOSKELETAL: Knee pains. GI: Negative for diarrhea and abdominal pain. : Negative for hematuria or frequency. NEUROLOGIC: No TIAs or CVAs. PSYCH: No evidence of depression. PHYSICAL EXAMINATION: GENERAL: Shows elderly female looking younger than her stated age, in no acute distress. VITAL SIGNS: She is 5 feet 2 inches and weighs 130 pounds. Blood pressure is 144/70, heart rate of 78 and regular, respiratory rate of 20, and temperature of 98.1. HEENT: Head is normocephalic. EYES: No pallor, no icterus. NECK: Supple. LUNGS: Clear bilaterally. HEART: PMI is normal; S1 and S2 are normal. Soft early systolic murmur in the mitral and aortic area, grade 1/6 to 2/6. ABDOMEN: Soft, nontender. EXTREMITIES: No cyanosis, clubbing, or edema. Right knee has a dressing on. NEUROLOGIC: Awake, alert, and oriented x3. LABORATORY DATA: Hemoglobin was 7, after transfusion, it is 9.9. Potassium is 3.4, being corrected. Other labs are okay. Physical exam otherwise sinus rhythm. ASSESSMENT: This is a 67-year-old female with a history of hypertension, recent surgery for the infected knee, on antibiotic. ID consultation. At this point, she will be continued on Cozaar, hydrochlorothiazide and Norvasc. I thank you kindly. We will follow on p.rBaljitn. basis. Yash Hua MD
[2017-11-21 00:43] VITALS: O2SAT 100
[2017-11-21 06:30] LABS: HEMOGLOBIN 9.9 g/dL (11.0-16.0); MEAN CORPUSCULAR HEMOGLOBIN 25.8 pg (27.0-31.0); MEAN CORPUSCULAR HGB CONC 32.3 g/dL (33.0-37.0); MEAN PLATELET VOLUME 8.1 fL (7.2-11.7); RBC 3.84 Mil/uL (3.80-5.20); RED CELL DISTRIBUTION WIDTH 16.4 % (11.5-14.5); WHITE BLOOD COUNT 11.4 K/uL (4.8-10.8)
[2017-11-21 06:43] LABS: BLOOD UREA NITROGEN 6 mg/dL (7-17); CALCIUM 8.6 mg/dl (8.6-10.4); GFR AFRICAN-AMERICAN > 60; GFR NON-AFRICAN AMERICAN > 60
[2017-11-21] MEDS: Multiple Vitamins Tab PO SCH (10:10)
[2017-11-21] MEDS: Vancomycin 1 gm/NS 200 ml 1 GM/200 ML BAG IVPB SCH (10:10)
[2017-11-21] MEDS: Enoxaparin 40 mg Syringe SC SCH (10:10)
[2017-11-21] MEDS: Oxycodone/Acetaminophen 5/325 mg Tab PO PRN (10:12)
--- NOTE | 2017-11-21 11:38 | CP.PCM.PN ---
Subjective - Date & Time of Evaluation Date of Evaluation: 11/21/17 Time of Evaluation: 11:37 - Subjective Subjective: better.vital noted. Objective - Vital Signs/Intake and Output Vital Signs (last 24 hours): Temp Pulse Resp BP Pulse Ox 98.8 F 88 18 156/71 H 100 11/21/17 07:35 11/21/17 07:35 11/21/17 07:35 11/21/17 07:35 11/21/17 07:35 Intake and Output: 11/21/17 11/21/17 06:59 18:59 Intake Total 240 Output Total 300 Balance -60 - Medications Medications: Current Medications Acetaminophen (Tylenol 325mg Tab) 650 mg PO Q4 PRN PRN Reason: Fever 101 degrees fahrenheit Last Admin: 11/19/17 18:50 Dose: 650 mg Amlodipine Besylate (Norvasc) 10 mg PO DAILY [facility] Last Admin: 11/21/17 10:10 Dose: 10 mg Docusate Sodium (Colace) 100 mg PO BID [facility] Last Admin: 11/21/17 10:10 Dose: Not Given Enoxaparin Sodium (Lovenox) 40 mg SC DAILY [facility] Last Admin: 11/21/17 10:10 Dose: 40 mg Ergocalciferol (Drisdol 50,000 Intl Units Cap) 1 cap PO Q7D [facility] Last Admin: 11/19/17 18:15 Dose: 1 cap Hydrochlorothiazide (Microzide) 12.5 mg PO DAILY [facility] Last Admin: 11/21/17 10:10 Dose: 12.5 mg Hydromorphone HCl (Dilaudid) 0.5 mg IVP Q4H PRN PRN Reason: Pain, severe (8-10) Ceftriaxone Sodium 1 gm/ (Sodium Chloride) 100 mls @ 100 mls/hr IVPB Q12H [facility] Last Admin: 11/20/17 22:40 Dose: 100 mls/hr Vancomycin/Sodium Chloride (Vancomycin 1 Gm/Ns 200 Ml) 1 gm in 200 mls @ 133 mls/hr IVPB Q24H [facility] Stop: 11/24/17 10:31 Last Admin: 11/21/17 10:10 Dose: 133 mls/hr Losartan Potassium (Cozaar) 50 mg PO DAILY [facility] Last Admin: 11/21/17 10:10 Dose: 50 mg Multivitamins (Hexavitamin) 1 tab PO DAILY [facility] Last Admin: 11/21/17 10:10 Dose: 1 tab Oxycodone/Acetaminophen (Percocet 5/325 Mg Tab) 1 tab PO Q4 PRN PRN Reason: Pain, moderate (4-7) Stop: 11/21/17 13:56 Last Admin: 11/21/17 10:12 Dose: 1 tab Rosuvastatin Calcium (Crestor) 10 mg PO [facility] Last Admin: 11/20/17 22:40 Dose: 10 mg - Labs Labs: 11/21/17 06:23 11/21/17 06:23 - Constitutional Appears: No Acute Distress - Head Exam Head Exam: NORMOCEPHALIC - Neck Exam Neck Exam: Normal Inspection - Respiratory Exam Respiratory Exam: Clear to Ausculation Bilateral - Cardiovascular Exam Cardiovascular Exam: REGULAR RHYTHM - GI/Abdominal Exam GI & Abdominal Exam: Soft - Neurological Exam Neurological Exam: Alert, Oriented x3 Assessment and Plan - Assessment and Plan (Free Text) Assessment: [email or web address] for more antibitica
--- NOTE | 2017-11-21 12:19 | CP.PCM.PN ---
Subjective - Date & Time of Evaluation Date of Evaluation: 11/21/17 Time of Evaluation: 11:50 - Subjective Subjective: HAT BRIM AND CROWN LAMINATING OPERATOR NOTES DISCUSSED ANTIBIOTICS DURATION WITH DR. DANIELS , CONTINUE ANCEF 2 GM Q 8 HRS X 6 WEEKS, FOLLOWED BY KEFLEX 500 MG PO TID X 2 WEEKS AND BACID, BID ( IST DOSE OF KEFLEX TO BE BEGIN ON JANUARY 02 ) CBC, CMP Q WEEKLY X 6 WEEKS ALL INFORMATION SENT TO REHAB TO FOLLOW Objective - Vital Signs/Intake and Output Vital Signs (last 24 hours): Temp Pulse Resp BP Pulse Ox 98.8 F 88 18 156/71 H 100 11/21/17 07:35 11/21/17 07:35 11/21/17 07:35 11/21/17 07:35 11/21/17 07:35 Intake and Output: 11/21/17 11/21/17 06:59 18:59 Intake Total 240 Output Total 300 Balance -60 - Medications Medications: Current Medications Acetaminophen (Tylenol 325mg Tab) 650 mg PO Q4 PRN PRN Reason: Fever 101 degrees fahrenheit Last Admin: 11/19/17 18:50 Dose: 650 mg Amlodipine Besylate (Norvasc) 10 mg PO DAILY [facility] Last Admin: 11/21/17 10:10 Dose: 10 mg Docusate Sodium (Colace) 100 mg PO BID [facility] Last Admin: 11/21/17 10:10 Dose: Not Given Enoxaparin Sodium (Lovenox) 40 mg SC DAILY [facility] Last Admin: 11/21/17 10:10 Dose: 40 mg Ergocalciferol (Drisdol 50,000 Intl Units Cap) 1 cap PO Q7D [facility] Last Admin: 11/19/17 18:15 Dose: 1 cap Hydrochlorothiazide (Microzide) 12.5 mg PO DAILY [facility] Last Admin: 11/21/17 10:10 Dose: 12.5 mg Hydromorphone HCl (Dilaudid) 0.5 mg IVP Q4H PRN PRN Reason: Pain, severe (8-10) Ceftriaxone Sodium 1 gm/ (Sodium Chloride) 100 mls @ 100 mls/hr IVPB Q12H [facility] Last Admin: 11/20/17 22:40 Dose: 100 mls/hr Vancomycin/Sodium Chloride (Vancomycin 1 Gm/Ns 200 Ml) 1 gm in 200 mls @ 133 mls/hr IVPB Q24H [facility] Stop: 11/24/17 10:31 Last Admin: 11/21/17 10:10 Dose: 133 mls/hr Losartan Potassium (Cozaar) 50 mg PO DAILY [facility] Last Admin: 11/21/17 10:10 Dose: 50 mg Multivitamins (Hexavitamin) 1 tab PO DAILY [facility] Last Admin: 11/21/17 10:10 Dose: 1 tab Oxycodone/Acetaminophen (Percocet 5/325 Mg Tab) 1 tab PO Q4 PRN PRN Reason: Pain, moderate (4-7) Stop: 11/21/17 13:56 Last Admin: 11/21/17 10:12 Dose: 1 tab Rosuvastatin Calcium (Crestor) 10 mg PO HS [facility] Last Admin: 11/20/17 22:40 Dose: 10 mg - Labs Labs: 11/21/17 06:23 11/21/17 06:23
--- NOTE | 2017-11-21 12:50 | CP.PCM.PN ---
Subjective - Date & Time of Evaluation Date of Evaluation: 11/21/17 Time of Evaluation: 12:50 - Subjective Subjective: # POD 2 PATIENT AWAKE AND ALERT, VSS.AFEBRILE PAIN UNDER CONTROL RIGHT LOWER EXTREMITY IMMOBILIZER IN PLACE. S/P PICC LINE -RIGHT UPPER ARM 11/19/17 PATIENT FOR SUBACUTE REHABILITATION TODAY ANTIBIOTICS PRESCRIBED IN MY NOTE EXPLAINED ALSO TO THE PATIENT PERSONALLY. Objective - Vital Signs/Intake and Output Vital Signs (last 24 hours): Temp Pulse Resp BP Pulse Ox 98.8 F 88 18 156/71 H 100 11/21/17 07:35 11/21/17 07:35 11/21/17 07:35 11/21/17 07:35 11/21/17 07:35 Intake and Output: 11/21/17 11/21/17 06:59 18:59 Intake Total 240 Output Total 300 Balance -60 - Medications Medications: Current Medications Acetaminophen (Tylenol 325mg Tab) 650 mg PO Q4 PRN PRN Reason: Fever 101 degrees fahrenheit Last Admin: 11/19/17 18:50 Dose: 650 mg Amlodipine Besylate (Norvasc) 10 mg PO DAILY [facility] Last Admin: 11/21/17 10:10 Dose: 10 mg Docusate Sodium (Colace) 100 mg PO BID [facility] Last Admin: 11/21/17 10:10 Dose: Not Given Enoxaparin Sodium (Lovenox) 40 mg SC DAILY [facility] Last Admin: 11/21/17 10:10 Dose: 40 mg Ergocalciferol (Drisdol 50,000 Intl Units Cap) 1 cap PO Q7D [facility] Last Admin: 11/19/17 18:15 Dose: 1 cap Hydrochlorothiazide (Microzide) 12.5 mg PO DAILY [facility] Last Admin: 11/21/17 10:10 Dose: 12.5 mg Hydromorphone HCl (Dilaudid) 0.5 mg IVP Q4H PRN PRN Reason: Pain, severe (8-10) Ceftriaxone Sodium 1 gm/ (Sodium Chloride) 100 mls @ 100 mls/hr IVPB Q12H [facility] Last Admin: 11/20/17 22:40 Dose: 100 mls/hr Vancomycin/Sodium Chloride (Vancomycin 1 Gm/Ns 200 Ml) 1 gm in 200 mls @ 133 mls/hr IVPB Q24H [facility] Stop: 11/24/17 10:31 Last Admin: 11/21/17 10:10 Dose: 133 mls/hr Losartan Potassium (Cozaar) 50 mg PO DAILY [facility] Last Admin: 11/21/17 10:10 Dose: 50 mg Multivitamins (Hexavitamin) 1 tab PO DAILY [facility] Last Admin: 11/21/17 10:10 Dose: 1 tab Oxycodone/Acetaminophen (Percocet 5/325 Mg Tab) 1 tab PO Q4 PRN PRN Reason: Pain, moderate (4-7) Stop: 11/21/17 13:56 Last Admin: 11/21/17 10:12 Dose: 1 tab Rosuvastatin Calcium (Crestor) 10 mg PO [facility] Last Admin: 11/20/17 22:40 Dose: 10 mg - Labs Labs: 11/21/17 06:23 11/21/17 06:23 - Constitutional Appears: No Acute Distress - Head Exam Head Exam: NORMAL INSPECTION - Eye Exam Eye Exam: EOMI, PERRL - ENT Exam ENT Exam: Normal Oropharynx - Neck Exam Neck Exam: Normal Inspection - Respiratory Exam Respiratory Exam: Clear to Ausculation Bilateral - Cardiovascular Exam Cardiovascular Exam: REGULAR RHYTHM, +S1, +S2 - GI/Abdominal Exam GI & Abdominal Exam: Soft, Normal Bowel Sounds - Extremities Exam Extremities Exam: absent: Calf Tenderness, Pedal Edema (RT. KNEE IN DRESSING / SOFT SUPPORT.) Additional comments: FOOT WARM. dENIES ANY NUMBNESS OR TINGLING. 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 ADD PO BACID 1 CAPSULE BID F/U RENAL FUNCTIONS CLOSELY WITH CBC WITH DIFFERENTIAL WEEKLY FOR 6 WEEKS WHILE IN REHABILITATION. PATIENT FOR SUBACUTE REHABILITATION TODAY REPORTED BY RN WILL FOLLOW THE PATIENT WHILE IN HOSPITAL.
[2017-11-21] MEDS ORDERED: Potassium Chloride 20 mEq ER Tab PO ONE (14:00)
[2017-11-21 16:10] VITALS: BP 106/61; PULSE 78; RESP 20; TEMP 98.1
== END 2017-11-21 17:44 | DRG 465 ==
LOC: C.9S 05:58 → C.6T 16:48
PROVIDERS: ADMIT Orthopaedic Surgery; ATTEND Orthopaedic Surgery
PROC: 0SHC08Z Insertion of Spacer into Right Knee Joint, Open Approach (ICD-10-PCS; 2017-11-18)
PROC: 0SBC0ZZ Excision of Right Knee Joint, Open Approach (ICD-10-PCS; 2017-11-18)
PROC: 0SBC0ZX Excision of Right Knee Joint, Open Approach, Diagnostic (ICD-10-PCS; 2017-11-18)
PROC: 0SPC0JZ Removal of Synthetic Substitute from Right Knee Joint, Open Approach (ICD-10-PCS; principal; 2017-11-18 08:07)
DX: T84.53XA Infection and inflammatory reaction due to internal right knee prosthesis, initial encounter (principal); T84.052A Periprosthetic osteolysis of internal prosthetic right knee joint, initial encounter; M17.11 Unilateral primary osteoarthritis, right knee; I10 Essential (primary) hypertension; Y79.2 Prosthetic and other implants, materials and accessory orthopedic devices associated with adverse incidents; Y83.1 Surgical operation with implant of artificial internal device as the cause of abnormal reaction of the patient, or of later complication, without mention of misadventure at the time of the procedure; E78.00 Pure hypercholesterolemia, unspecified

== ENCOUNTER 2018-06-24 07:45 | Inpatient (IN) | payer MEDICARE ==
[2018-06-08 09:46] VITALS: BMI 25.1
[2018-07-14] MEDS ORDERED: ceFAZolin IV 1 gm in Dextrose 2 GM/100 ML BAG IVPB ONE ×2 (16:36→22:09)
[2018-07-14] MEDS ORDERED: Vancomycin 1 g Inj ONE (16:37)
--- NOTE | 2018-07-14 17:33 | CP.PCM.HP ---
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 Patient had custom implant fabricated, and today for revision total knee replacement. Patient previously treated with extended course of IV antibiotics as well. Primary R TKR 02/2013 s/p explant 11/18/2017 Present on Admission - Present on Admission Any Indicators Present on Admission: No Review of Systems - Review of Systems All systems: reviewed and no additional remarkable complaints except - Musculoskeletal Musculoskeletal: As Per HPI Past Patient History - Past Medical History & Family History Past Medical History?: Yes Past Family History: Reviewed and not pertinent - Past Social History Smoking Status: Never Smoked - CARDIAC Hx Cardiac Disorders: Yes Hx Hypertension: Yes Hx Hypotension: Yes - PULMONARY Hx Respiratory Disorders: No - NEUROLOGICAL Hx Neurological Disorder: No - HEENT Hx HEENT Problems: No - RENAL Hx Chronic Kidney Disease: No - ENDOCRINE/METABOLIC Hx Endocrine Disorders: No - HEMATOLOGICAL/ONCOLOGICAL Hx Blood Disorders: No Hx Blood Transfusions: Yes Hx Blood Transfusion Reaction: No - INTEGUMENTARY Hx Dermatological Problems: No - MUSCULOSKELETAL/RHEUMATOLOGICAL Hx Musculoskeletal Disorders: Yes Hx Arthritis: Yes Hx Degenerative Joint Disease: Yes (REPLACEMENT REMOVED/SPACER IN) Hx Falls: No Hx Osteoarthritis: Yes Other/Comment: HX: INFECTION RIGHT KNEE ; RIGHT KNEE OA - GASTROINTESTINAL Hx Gastrointestinal Disorders: No - GENITOURINARY/GYNECOLOGICAL Hx Genitourinary Disorders: No - PSYCHIATRIC Hx Psychophysiologic Disorder: No Hx Substance Use: No - SURGICAL HISTORY Hx Surgeries: Yes Hx Section: Yes Hx Joint Replacement: Yes (RIGHT TOTAL KNEE REPLACEMENT ) Hx Vascular Access Device: Yes (PICC LINE/REMOVED) Other/Comment: REMOVAL KNEE REPLACEMENT/SPACER IN - ANESTHESIA Hx Anesthesia: Yes Hx Anesthesia Reactions: No Hx Malignant Hyperthermia: No Has any member of the family had a problem w/ anesthesia?: (UNKNOWN) Meds Allergies/Adverse Reactions: Allergies Allergy/AdvReac Type Severity Reaction Status Date / Time No Known Allergies Allergy Verified 06/08/18 09:46 Physical Exam - Constitutional Appears: Well, No Acute Distress Additional comments: medical clearance on chart Dr. 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
[2018-07-14] MEDS ORDERED: oxyCODONE 5 mg Immediate Release Tab PO PRN (17:38)
[2018-07-14] MEDS ORDERED: HYDROmorphone 1 mg/ml ISec IVP PRN (17:40)
[2018-07-14] MEDS ORDERED: Propofol 10 mg/ml Inj (20 ML) ONE (17:41)
[2018-07-14] MEDS ORDERED: Tranexamic Acid 1,000 MG in Sodium Chloride 0.9% 50 ML IV ONE (18:00)
[2018-07-14] MEDS: Bacitracin 150,000 UNIT in Sodium Chloride 0.9% Irrig 3,000 ML IR SCH (18:19)
[2018-07-14] MEDS ORDERED: Rocuronium 10 mg/ml (5 ml) ONE ×2 (18:26→18:48)
[2018-07-14] MEDS ORDERED: Neostigmine Methylsulfate 3mg/3ml Syringe IV ONE (18:27)
[2018-07-14] MEDS ORDERED: Morphine 4 MG/ML VIAL ONE ×2 (18:30→18:35)
[2018-07-14] MEDS ORDERED: Sodium Chloride 0.9% 60 ML IV ONE (18:40)
[2018-07-14] MEDS ORDERED: Bupivacaine 0.5% Inj(30mL) IJ ONE (18:49)
[2018-07-14] MEDS ORDERED: HYDROmorphone 0.5 mg/0.5 ml ISec IVP PRN (18:49)
[2018-07-14] MEDS: Bupivacaine Liposomal Inj 20 ml INFIL ONE ×2 (21:20→23:45)
[2018-07-15] MEDS ORDERED: HYDROmorphone 0.5 mg/0.5 ml ISec IVP PRN (00:50)
--- NOTE | 2018-07-15 00:54 | PCM.SURG1 ---
Surgeon's Initial Post Op Note - Surgeon's Notes Surgeon: Maria G Clancy MD Size Changer: Evelio Dykes Pa-C Type of Anesthesia: General Endo Anesthesia Administered By: Dr. Napier Pre-Operative Diagnosis: periprosthetic osteolysis and nickel and cobalt allergy Operative Findings: see full note Post-Operative Diagnosis: same Operation Performed: revision R total knee replacement Specimen/Specimens Removed: tissues specimens Estimated Blood Loss: EBL {In ML}: 200 Blood Products Given: N/A Drains Used: Wound Vac Post-Op Condition: Fair Date of Surgery/Procedure: 07/15/18 Time of Surgery/Procedure: 00:53
[2018-07-15] MEDS: Vancomycin 1 gm/NS 200 ml 1 GM/200 ML BAG IVPB SCH ×2 (05:18→18:45)
[2018-07-15 07:51] LABS: BASO % 0.2 % (0.0-2.0); HEMOGLOBIN 10.3 g/dL (11.0-16.0); LYMPH # 0.7 K/uL (1.0-4.3); MEAN CELL VOLUME 79.1 fL (81.0-99.0); MEAN CORPUSCULAR HGB CONC 32.8 g/dL (33.0-37.0); MEAN PLATELET VOLUME 8.8 fL (7.2-11.7); MONO # 0.4 K/uL (0.0-0.8); MONO % 3.9 % (0.0-10.0); NEUT # 9.8 K/uL (1.8-7.0); NEUT % 89.9 % (50.0-75.0); PLATELET COUNT 220 K/uL (130-400); RBC 3.96 Mil/uL (3.80-5.20); RED CELL DISTRIBUTION WIDTH 16.5 % (11.5-14.5)
[2018-07-15 07:54] LABS: WHITE BLOOD COUNT 10.9 K/uL (4.8-10.8)
[2018-07-15 08:12] LABS: BLOOD UREA NITROGEN 9 mg/dL (7-17); GFR NON-AFRICAN AMERICAN > 60
--- NOTE | 2018-07-15 08:46 | OP ---
PROCEDURE DATE: 07/14/2018 PREOPERATIVE DIAGNOSES: Status post explantation of right total knee replacement and insertion of antibiotic spacer and metal allergy. POSTOPERATIVE DIAGNOSES: Status post explantation of right total knee replacement and insertion of antibiotic spacer and metal allergy. PROCEDURE: Removal of antibiotic spacer and revision, right total knee arthroplasty. SURGEON: Félix Clancy MD. Dr. Clancy was assisted by Cary Dykes and Ana Fraser, physician assistants. Both physician assistants were scrubbed and present throughout the entire case and assisted in patient positioning, retraction throughout the entire case, wound closure. ANESTHESIA: General. COMPLICATIONS: None. ESTIMATED BLOOD LOSS: 500 mL. IMPLANT: Custom fabricated Titanium Biomet hinged revision knee replacement. INDICATIONS FOR PROCEDURE: This is a 68-year-old female who several years ago underwent a right total knee replacement. Postoperatively, the patient had persistent complaints of pain and swelling, and radiographically, the patient was found to have significant osteolysis of the prosthesis. The patient underwent infectious workup and explantation of the right knee replacement with insertion of the antibiotic spacer. The patient underwent a full course of IV antibiotics during which time the patient was found to have documented NICKEL AND COBALT ALLERGY. Subsequently, recommendations were for insertion of Titanium implant with negligible amounts of other metals. The patient subsequently completed a course of antibiotics. The implants were received and recommendations were for reimplantation. The risks, benefits, and alternatives of procedure were discussed with the patient including the possibility of infection and informed consent was obtained. DESCRIPTION OF PROCEDURE: After surgical site was finally verified in the perioperative holding area, the patient was taken to the operating room and placed supine on the operating room table. After initiation of general anesthesia, Medrano catheter was inserted. The patient received 2 g of Ancef IV. Tourniquet was placed about the right thigh. Venodyne boot was placed on the nonoperative extremity. Care was taken to make sure bony prominences and nerves were well padded and protected and the right lower extremity was prepped and draped in usual sterile fashion. Right lower extremity was exsanguinated and the tourniquet was inflated. The previous incision was re-incised soft tissue was dissected sharply down to the capsule. Medial parapatellar arthrotomy was performed. At this point, the patient was noted to have some scar tissue, and this was sharply debrided and medial and lateral releases were performed. This allowed visualization of the knee, and the antibiotic spacer was subsequently removed. At this point, attention was directed to the tibia, revision tibial cut was performed and the medullary canal of the proximal tibia was reamed to allow for implantation of the custom implant. During this process, the patient was noted to have a fracture along the proximal aspect of the tibia and care was taken to not propagate the fracture. C-arm image intensifier was used to identify the positioning of reamers as well as trial implant. Once the tibia had been prepared, my attention was directed to the femur. Similarly revision distal femoral cut was performed to allow for a 5 cm resection to accommodate femoral component. Care was taken to not violate the posterior capsule. Again subsequently, the medullary canal was reamed sequentially to accommodate the custom femoral component, and again a small fracture was noted right at the distal aspect of the femur. At this point, the tibia and the femur repair, the trial tibia, trial femur, and a trial bearing was inserted and the components were then hinged. The knee was taken through a range of motion, it was noted to be stable. The position of trial implants were again verified using a C-arm image intensifier in both AP and lateral plane. At this point, the components were unhinged and the trial components were removed. The knee joint was pulse lavaged with antibiotic and saline solution. After approximately 130 minutes, the tourniquet was deflated and any obvious bleeding was cauterized. At this point, the actual components were cemented in two stages, first the tibial component was cemented being careful to maintain proper rotation and verifying position of the stem and ensure that the fracture are not propagated. Small amount of cemented extravasation was noted posterolaterally. Once the cement hardened, care was taken to remove any excess cement and attention was directed to the femur. The femur was then impacted and held into place while the cement hardened. Care was taken to maintain proper rotation. At this point, once the cement hardened, the wound was inspected for any debris, and once again pulse lavaged. The actual bearing was then inserted, and the femoral and tibial components were hinged and locked with the appropriate bushings and cross pin. At this point, the knee was taken through a range of motion and was noted to be stable from 0 to approximately 100 degrees of flexion. The wound was once again pulse lavaged. Vancomycin powder was inserted in the wound and the arthrotomy was closed with #1 Vicryl suture. Subcutaneous tissue was closed with 0 Vicryl and 2-0 Vicryl suture, and the skin was closed using 3-0 nylon. Prevena incisional wound VAC and knee immobilizer was placed. The patient was awakened and taken to recovery room in stable condition. Félix Clancy MD
[2018-07-15 09:51] LABS: ANISOCYTOSIS SLIGHT; BANDS 1 % (0-2); BASOPHIL 1 % (0-2); HYPOCHROMIC SLIGHT; LYMPHOCYTE 9 % (20-40); MONOCYTE 2 % (0-10); NEUTROPHIL 87 % (50-75); PLATELET ESTIMATE NORMAL (NORMAL); POIKILOCYTOSIS SLIGHT; TOTAL CELLS COUNTED 100
[2018-07-15 09:52] LABS: OVALOCYTES SLIGHT
--- NOTE | 2018-07-15 11:08 | RAD ---
Date of service: 07/15/2018 PROCEDURE: Right femur HISTORY: s/p revision TKR COMPARISON: 11/19/2017 right knee radiographs TECHNIQUE: Standard protocol for this study/examination. FINDINGS: Expected/satisfactory postoperative findings related to revision right TKA are. IMPRESSION: Satisfactory postoperative status
--- NOTE | 2018-07-15 11:13 | RAD ---
Date of service: 07/14/2018 PROCEDURE: Intraoperative Fluoroscopy. HISTORY: RIGHT KNEE REVICTION FINDINGS: Fluoroscopic assistance was provided for revision right TKR. Please refer to the operative report from MARIELLA Anderson. Total fluoroscopic time (continuous mode) utilized during the procedure 53.8 (seconds). Dose report: DLP 0.1238 (mGy/m2):
--- NOTE | 2018-07-15 12:21 | RAD ---
Date of service: 07/15/2018 Indication: 07/15/18 Comparison: None Four images right tibia fibula Findings: The patient is status post right knee arthroplasty revision. Alignment appears satisfactory. Probable ossific fragment along the posterior distal femur. Soft tissue swelling and subcutaneous emphysema consistent with recent postoperative history Impression: Status post right knee arthroplasty revision as above.
--- NOTE | 2018-07-15 12:27 | CP.PCM.CON ---
History of Present Illness - History of Present Illness History of Present Illness: INFECTIOUS DISEASE CONSULT; HPI 68F with right knee nickel/cobalt allergy s/p explantation of right knee prost hesis for reimplantation/revision TKR. 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 Patient had custom implant fabricated, and underwent revision total knee replacement. Patient previously treated with extended course of IV antibiotics as well as by mouth antibiotics. INFECTIOUS DISEASE CONSULTATION REQUESTED BY orthopedic surgeon DR. MARIELLA BARAHONA. Patient seen postoperatively resting in bed with her family, and son present. PATIENT RECEIVED iv ANCEF DURING SURGERY AND PRESENTLY PLACED ON iv VANCOMYCIN 1 G EVERY 12 HOURLY. PATIENT DENIES ANY RECENT FEVERS OR CHILLS. DENIES ANY RECENT DENTAL WORKUP.PATIENT DENIES ANY DYSURIA, HEMATURIA. Presently complaining off some pain in the right knee, postoperative site but is on analgesics which have been helping her. PMH HTN,HYPERLIPIDEMIA, OSTEOARTHRITIS. PSH ; Primary R TKR 02/2013 s/p explant 11/18/2017 SH ; NO HISTORY OF SMOKING OR DRINKING. NO HX OF SUBSTANCE ABUSE. lIVES WITH FAMILY HER . ALLERGIES; NDA, NICKEL/COBALT MEDS ; SEE MARS. Review of Systems - Constitutional Constitutional: absent: Chills, Fever - EENT Eyes: absent: Floaters, Photophobia Nose/Mouth/Throat: absent: Mouth Lesions, Sore Throat - Cardiovascular Cardiovascular: absent: Chest Pain, Dyspnea - Respiratory Respiratory: absent: Cough - Gastrointestinal Gastrointestinal: absent: Abdominal Pain, Nausea, Vomiting - Genitourinary Genitourinary: absent: Dysuria, Hematuria, Nocturia, Freq UTI, Hx Renal/Bladder Calculi - Reproductive: Female Reproductive:Female: Post Menopausal - Musculoskeletal Musculoskeletal: As Per HPI - Neurological Neurological: absent: Headaches, Weakness - Endocrine Endocrine: absent: Polyphagia, Polyuria - Hematologic/Lymphatic Hematologic: As Per HPI. absent: Easy Bleeding, Easy Bruising Past Patient History - Past Medical History & Family History Past Medical History?: Yes - Past Social History Smoking Status: Never Smoked - CARDIAC Hx Cardiac Disorders: Yes Hx Hypertension: Yes - PULMONARY Hx Respiratory Disorders: No - NEUROLOGICAL Hx Neurological Disorder: No - HEENT Hx HEENT Problems: No - RENAL Hx Chronic Kidney Disease: No - ENDOCRINE/METABOLIC Hx Endocrine Disorders: No - HEMATOLOGICAL/ONCOLOGICAL Hx Blood Disorders: No Hx Blood Transfusions: Yes Hx Blood Transfusion Reaction: No - INTEGUMENTARY Hx Dermatological Problems: No - MUSCULOSKELETAL/RHEUMATOLOGICAL Hx Arthritis: Yes - GASTROINTESTINAL Hx Gastrointestinal Disorders: No - GENITOURINARY/GYNECOLOGICAL Hx Genitourinary Disorders: No - PSYCHIATRIC Hx Substance Use: No - SURGICAL HISTORY Hx Surgeries: Yes Hx Section: Yes Hx Joint Replacement: Yes (RIGHT TOTAL KNEE REPLACEMENT ) Hx Vascular Access Device: Yes (PICC LINE/REMOVED) Other/Comment: REMOVAL KNEE REPLACEMENT/SPACER IN - ANESTHESIA Hx Anesthesia: Yes Hx Anesthesia Reactions: No Hx Malignant Hyperthermia: No Has any member of the family had a problem w/ anesthesia?: No Meds Allergies/Adverse Reactions: Allergies Allergy/AdvReac Type Severity Reaction Status Date / Time No Known Allergies Allergy Verified 06/08/18 09:46 - Medications Medications: Current Medications Acetaminophen (Tylenol 325mg Tab) 650 mg PO Q6 [facility] Last Admin: 07/15/18 05:24 Dose: 650 mg Apixaban (Eliquis) 2.5 mg PO BID [facility] Docusate Sodium (Colace) 100 mg PO BID [facility] Last Admin: 07/15/18 10:37 Dose: 100 mg Hydrochlorothiazide (Microzide) 12.5 mg PO DAILY [facility] Last Admin: 07/15/18 10:37 Dose: 12.5 mg Hydromorphone HCl (Dilaudid) 1 mg IVP Q4H PRN PRN Reason: Pain, severe (8-10) Vancomycin/Sodium Chloride (Vancomycin 1 Gm/Ns 200 Ml) 1 gm in 200 mls @ 133 mls/hr IVPB Q12H [facility]; Protocol Stop: 07/20/18 06:01 Last Admin: 07/15/18 05:18 Dose: 133 mls/hr Losartan Potassium (Cozaar) 50 mg PO DAILY [facility] Last Admin: 07/15/18 10:37 Dose: 50 mg Ondansetron HCl (Zofran Inj) 4 mg IVP ONCE PRN PRN Reason: Nausea/Vomiting Oxycodone HCl (Oxycodone Immediate Release Tab) 5 mg PO Q4 PRN PRN Reason: Pain, Mild (1-3) Oxycodone HCl (Oxycodone Immediate Release Tab) 10 mg PO Q4 PRN PRN Reason: Pain, moderate (4-7) Pneumococcal Polyvalent Vaccine (Pneumovax 23 Vaccine) 0.5 ml IM .ONCE ONE Stop: 07/17/18 11:01 Pregabalin (Lyrica) 50 mg PO BID [facility] Last Admin: 07/15/18 10:38 Dose: 50 mg Rosuvastatin Calcium (Crestor) 5 mg PO HS [facility] Physical Exam - Constitutional Appears: No Acute Distress - Head Exam Head Exam: NORMAL INSPECTION - Eye Exam Eye Exam: EOMI, PERRL - ENT Exam ENT Exam: Mucous Membranes Moist, Normal Exam - Neck Exam Neck exam: Positive for: Normal Inspection - Respiratory Exam Respiratory Exam: Clear to Auscultation Bilateral, NORMAL BREATHING PATTERN - Cardiovascular Exam Cardiovascular Exam: REGULAR RHYTHM, +S1, +S2 - GI/Abdominal Exam GI & Abdominal Exam: Normal Bowel Sounds, Soft. absent: Organomegaly - Extremities Exam Extremities exam: Positive for: normal capillary refill, pedal pulses present. Negative for: calf tenderness, joint swelling (RIGHT KNEE AND SOFT DRESSING WHICH IS DRY AND CLEAN.), pedal edema - Neurological Exam Neurological exam: Alert, CN II-XII Intact, Oriented x3, Reflexes Normal - Psychiatric Exam Psychiatric exam: Normal Mood - Skin Skin Exam: Normal Color, Warm Results - Vital Signs Recent Vital Signs: Last Vital Signs Temp 97.3 F L 07/15/18 08:17 Pulse 85 07/15/18 08:17 Resp 20 07/15/18 08:17 BP 122/67 07/15/18 08:17 Pulse Ox 100 07/15/18 08:17 - Labs Result Diagrams: 07/15/18 07:43 07/15/18 07:44 Labs: Laboratory Results - last 24 hr 07/14/18 07/15/18 07/15/18 12:40 07:43 07:43 WBC 10.9 H D RBC 3.96 Hgb 10.3 L Hct 31.3 L MCV 79.1 L MCH 26.0 L MCHC 32.8 L RDW 16.5 H Plt Count 220 MPV 8.8 Neut % (Auto) 89.9 H Lymph % (Auto) 6.0 L [place] % (Auto) 3.9 Eos % (Auto) 0.0 Baso % (Auto) 0.2 Neut # (Auto) 9.8 H Lymph # (Auto) 0.7 L [place] # (Auto) 0.4 Eos # (Auto) 0.0 Baso # (Auto) 0.0 Neutrophils % (Manual) 87 H Band Neutrophils % 1 Lymphocytes % (Manual) 9 L Monocytes % (Manual) 2 Basophils % (Manual) 1 Platelet Estimate Normal Hypochromasia (manual) Slight Poikilocytosis (manual Slight Anisocytosis (manual) Slight Ovalocytes Slight Sodium Potassium Chloride Carbon Dioxide Anion Gap BUN Creatinine Est GFR ( Amer) Est GFR (Non-Af Amer) Random Glucose Calcium 25-OH Vitamin D Total 36.4 Blood Type O POSITIVE Antibody Screen Negative 07/15/18 07:44 WBC RBC Hgb Hct MCV MCH MCHC RDW Plt Count MPV Neut % (Auto) Lymph % (Auto) [place] % (Auto) Eos % (Auto) Baso % (Auto) Neut # (Auto) Lymph # (Auto) [place] # (Auto) Eos # (Auto) Baso # (Auto) Neutrophils % (Manual) Band Neutrophils % Lymphocytes % (Manual) Monocytes % (Manual) Basophils % (Manual) Platelet Estimate Hypochromasia (manual) Poikilocytosis (manual Anisocytosis (manual) Ovalocytes Sodium 139 Potassium 3.8 Chloride 101 Carbon Dioxide 29 Anion Gap 13 BUN 9 Creatinine 0.5 L Est GFR ( Amer) > 60 Est GFR (Non-Af Amer) > 60 Random Glucose 134 H Calcium 9.0 25-OH Vitamin D Total Blood Type Antibody Screen - Imaging and Cardiology X-RAY RIGHT TIBIATIBIA AND FIBULA Additional comment: S/P RT. 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 S/P RIGHT KNEE JOINT WITH REVISION AND RT. TKR/AND WOUND VAC 07/14/18. PANCULTURES. ESR CRP. MRSA SCREEN. CONTINUE IV VANCOMYCIN 1 G EVERY 12 HOURLY 07/15/18 TO COVER FOR SCN,STAPH AUREUS MSSA/MRSA AND SKIN BENITO. PREVIOUS CULTURES AND TISSUE GRAM STAINS AND CULTURES FROM 11/18/17 ALL NEGATIVE TO DATE FOR BACTERIA,FUNGUS,AFB. F/U RECENT CULTURES TAKEN IN OR. PATIENT WILL NEED 6 WEEKS IV VANCOMYCIN-1 g every 12 hourly. F/U BY ORAL KEFLEX 500MG PO TID X 8-12WKS TENTATIVELY. F/U VANCO TROUGH PRIOR TO THE FOURTH DOSE AND KEEP BETWEEN 10 AND 20 G/ML MONITOR RENAL FUNCTIONS / CBC W DIFF CLOSELY fOLLOW-UP CULTURES TO ADJUST ANTIBIOTICS.. LWC /WOUND VAC PER ORTHO. WILL DISCUSS WITH ORTHO. Status: Acute (2) Nickel allergy Status: Acute (3) HTN (hypertension) Assessment and Plan: on Cozaar and hydrochlorothiazide. Blood pressure is being monitored closely. Status: Chronic (4) Hyperlipidemia Status: Chronic
--- NOTE | 2018-07-15 12:30 | CP.PCM.PN ---
Subjective - Date & Time of Evaluation Date of Evaluation: 07/15/18 Time of Evaluation: 08:00 - Subjective Subjective: Patient states she has pain in her knee but it is not too bad and mediation helps. She denies CP/SOB/dizziness/n/v. Objective - Vital Signs/Intake and Output Vital Signs (last 24 hours): Temp Pulse Resp BP Pulse Ox 97.3 F L 85 20 122/67 100 07/15/18 08:17 07/15/18 08:17 07/15/18 08:17 07/15/18 08:17 07/15/18 08:17 Intake and Output: 07/15/18 07/15/18 06:59 18:59 Intake Total 1820 Output Total 175 Balance 1645 - Medications Medications: Current Medications Acetaminophen (Tylenol 325mg Tab) 650 mg PO Q6 [facility] Last Admin: 07/15/18 05:24 Dose: 650 mg Apixaban (Eliquis) 2.5 mg PO BID [facility] Docusate Sodium (Colace) 100 mg PO BID [facility] Last Admin: 07/15/18 10:37 Dose: 100 mg Hydrochlorothiazide (Microzide) 12.5 mg PO DAILY [facility] Last Admin: 07/15/18 10:37 Dose: 12.5 mg Hydromorphone HCl (Dilaudid) 1 mg IVP Q4H PRN PRN Reason: Pain, severe (8-10) Vancomycin/Sodium Chloride (Vancomycin 1 Gm/Ns 200 Ml) 1 gm in 200 mls @ 133 mls/hr IVPB Q12H [facility]; Protocol Stop: 07/20/18 06:01 Last Admin: 07/15/18 05:18 Dose: 133 mls/hr Losartan Potassium (Cozaar) 50 mg PO DAILY [facility] Last Admin: 07/15/18 10:37 Dose: 50 mg Ondansetron HCl (Zofran Inj) 4 mg IVP ONCE PRN PRN Reason: Nausea/Vomiting Oxycodone HCl (Oxycodone Immediate Release Tab) 5 mg PO Q4 PRN PRN Reason: Pain, Mild (1-3) Oxycodone HCl (Oxycodone Immediate Release Tab) 10 mg PO Q4 PRN PRN Reason: Pain, moderate (4-7) Pneumococcal Polyvalent Vaccine (Pneumovax 23 Vaccine) 0.5 ml IM .ONCE ONE Stop: 07/17/18 11:01 Pregabalin (Lyrica) 50 mg PO BID [facility] Last Admin: 07/15/18 10:38 Dose: 50 mg Rosuvastatin Calcium (Crestor) 5 mg PO HS [facility] - Labs Labs: 07/15/18 07:43 07/15/18 07:44 - Extremities Exam Additional comments: right knee: immobilizer intact, +ROM ankle/toes, sensation intact RLE calves soft NT ne ghomans Assessment and Plan (1) 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 Clancy, will await consultation. Dr. Clancy recommending approx 6 weeks IV antibiotics and co ntinue with PO after this, will await recommendations medical consultation foro post op mgmt PMD Dr. Hua PT/OT, NWB at this time PICC line will start ROM of knee per Dr. Clancy labs reviewed, labs in am Status: Acute (2) Nickel allergy Status: Acute (3) HTN (hypertension) Status: Chronic
[2018-07-15] MEDS: Multiple Vitamins Tab PO SCH (14:45)
--- NOTE | 2018-07-15 22:42 | CON ---
DATE: 07/15/2018 CARDIOLOGY CONSULTATION HISTORY OF PRESENT ILLNESS: This is a 68-year-old female who underwent knee replacement on the right side. Postop medical consultation is requested. The patient was seen in the office for preop clearance. Routine labs, EKG, echos were all acceptable. She was cleared as low risk. The patient has undergone surgery without any complications. PERSONAL HISTORY: Does not smoke. Does not drink. ALLERGIES: DENIED. REVIEW OF SYSTEMS: No chest pain. No shortness of breath. No visual disturbances. No hematemesis. No melena. Knee pains in the past, had a surgery done, which had some again inflammatory changes and underwent revision. No problems. No TIAs. No CVAs. No depression. No visual disturbances. Negative for hemoptysis. PAST MEDICAL HISTORY: History of knee surgery in the past on the same side. History of hypertension. MEDICATIONS AT HOME: Include Cozaar and to my recollection she was also taking Norvasc. PHYSICAL EXAMINATION: GENERAL: Shows elderly female who is conscious, alert, and well oriented, looking younger than her stated age in no acute distress. VITAL SIGNS: She is 5 feet 1 inches, weighs 133 pounds. Blood pressure is 130/70, heart rate of 78, respiratory rate of 14, afebrile. HEENT: Head is normocephalic. Eyes: No pallor. No icterus. NECK: Supple. LUNGS: Clear. HEART: Cardiac exam showed normal S1 and S2. No gallops. Soft early systolic murmur in the mitral and aortic area, grade 1/6 to 2/6. ABDOMEN: Soft. EXTREMITIES: Distal pulses are intact. NEUROLOGIC: Awake, alert, and oriented x3. No focal sign. LABORATORY DATA: CBC and chem-7 were acceptable. ASSESSMENT AND PLAN: A 68-year-old female with a history of hypertension. Status post revision of the right total knee replacement. Overall cardiac and medical condition is stable. We will recommend to continue the medical therapy for the blood pressure. I thank you kindly and we will follow only on as needed basis. Yash Hua MD
[2018-07-16] MEDS: Vancomycin 1 gm/NS 200 ml 1 GM/200 ML BAG IVPB SCH ×2 (05:34→17:56)
[2018-07-16 05:43] LABS: BASO % 0.3 % (0.0-2.0); EOS # 0.2 K/uL (0.0-0.7); EOS % 4.1 % (0.0-4.0); HEMOGLOBIN 8.6 g/dL (11.0-16.0); LYMPH # 0.8 K/uL (1.0-4.3); LYMPH % 15.1 % (20.0-40.0); MEAN CORPUSCULAR HEMOGLOBIN 25.7 pg (27.0-31.0); MEAN CORPUSCULAR HGB CONC 32.9 g/dL (33.0-37.0); MEAN PLATELET VOLUME 8.3 fL (7.2-11.7); MONO # 0.4 K/uL (0.0-0.8); NEUT % 72.5 % (50.0-75.0); RBC 3.35 Mil/uL (3.80-5.20); RED CELL DISTRIBUTION WIDTH 16.1 % (11.5-14.5); WHITE BLOOD COUNT 5.5 K/uL (4.8-10.8)
[2018-07-16 06:20] LABS: BLOOD UREA NITROGEN 13 mg/dL (7-17); CALCIUM 8.5 mg/dl (8.6-10.4); GFR NON-AFRICAN AMERICAN > 60
[2018-07-16 06:30] LABS: SQUAMOUS EPITHIAL < 1 /hpf (0-5); URINE BACTERIA RARE (<OCC); URINE BILIRUBIN NEGATIVE (NEGATIVE); URINE BLOOD NEGATIVE (NEGATIVE); URINE CLARITY Clear (Clear); URINE COLOR Yellow (YELLOW); URINE GLUCOSE (UA) NORMAL (Normal); URINE HYALINE CAST 0-2 /lpf (0-2); URINE LEUKOCYTE ESTERASE NEG Leu/uL (Negative); URINE PROTEIN NEGATIVE (NEGATIVE); URINE UROBILINOGEN NORMAL mg/dL (0.2-1.0)
--- NOTE | 2018-07-16 09:17 | CP.PCM.PN ---
Subjective - Date & Time of Evaluation Date of Evaluation: 07/16/18 Time of Evaluation: 09:15 - Subjective Subjective: Pt awake, alert. Adequate pain control. Afebrile R knee: dressing changed incision clean and intact no drainage calf soft NVI distally Hg 8.6 WBC 5.5 POD #2 Pt on vancomycin DVT prophylaxis PIC line ordered Plan for rehab once PIC line in place Objective - Vital Signs/Intake and Output Vital Signs (last 24 hours): Temp Pulse Resp BP Pulse Ox 98.8 F 94 H 18 143/81 97 07/16/18 08:21 07/16/18 08:21 07/16/18 08:21 07/16/18 08:21 07/16/18 08:21 Intake and Output: 07/16/18 07/16/18 06:59 18:59 Intake Total 350 Balance 350 - Medications Medications: Current Medications Acetaminophen (Tylenol 325mg Tab) 650 mg PO Q6 [facility] Last Admin: 07/16/18 05:35 Dose: 650 mg Apixaban (Eliquis) 2.5 mg PO BID [facility] Last Admin: 07/15/18 18:45 Dose: 2.5 mg Docusate Sodium (Colace) 100 mg PO BID [facility] Last Admin: 07/15/18 18:45 Dose: 100 mg Hydrochlorothiazide (Microzide) 12.5 mg PO DAILY [facility] Last Admin: 07/15/18 10:37 Dose: 12.5 mg Hydromorphone HCl (Dilaudid) 1 mg IVP Q4H PRN PRN Reason: Pain, severe (8-10) Losartan Potassium (Cozaar) 50 mg PO DAILY [facility] Last Admin: 07/15/18 10:37 Dose: 50 mg Multivitamins (Hexavitamin) 1 tab PO DAILY [facility] Last Admin: 07/15/18 14:45 Dose: 1 tab Ondansetron HCl (Zofran Inj) 4 mg IVP ONCE PRN PRN Reason: Nausea/Vomiting Oxycodone HCl (Oxycodone Immediate Release Tab) 5 mg PO Q4 PRN PRN Reason: Pain, Mild (1-3) Oxycodone HCl (Oxycodone Immediate Release Tab) 10 mg PO Q4 PRN PRN Reason: Pain, moderate (4-7) Pneumococcal Polyvalent Vaccine (Pneumovax 23 Vaccine) 0.5 ml IM .ONCE ONE Stop: 07/17/18 11:01 Pregabalin (Lyrica) 50 mg PO BID [facility] Last Admin: 07/15/18 18:45 Dose: 50 mg Rosuvastatin Calcium (Crestor) 5 mg PO HS [facility] Last Admin: 07/15/18 22:06 Dose: 5 mg - Labs Labs: 07/16/18 05:34 07/16/18 05:34
--- NOTE | 2018-07-16 09:57 | RAD ---
Date of service: 07/16/2018 PROCEDURE: Right Knee Radiographs. HISTORY: s/p revision TKR (repeat) COMPARISON: 11/19/2017 pre revision FINDINGS: BONES: Right femoral and tibial prosthetic components consistent with total knee replacement revision A separate bony fragment 2.8 x 0.8 cm projects posterior to the distal femoral diaphyseal metaphyseal junction- The femoral prosthetic alignment appears normal. The tibial prostatic component appears normally aligned. This tibial prosthetic component a surrounding cement. There is apparent cement like density projecting lateral to the tibial prosthetic component on series 206, image 4 JOINTS: Normal. No osteoarthritis. JOINT EFFUSION: None. OTHER FINDINGS: Drains and an effusion are present. Soft tissue changes compatible with recent postop status. IMPRESSION: Status post right total knee arthroplasty revision with findings as detailed above. Anatomical alignment of the prosthesis suggested.
[2018-07-16] MEDS ORDERED: Potassium Chloride 20 mEq ER Tab PO ONE (10:00)
[2018-07-16] MEDS: Multiple Vitamins Tab PO SCH (11:11)
[2018-07-16] MEDS: oxyCODONE 10 mg Immediate Release Tab PO PRN (12:16)
--- NOTE | 2018-07-16 12:31 | RAD ---
HISTORY: PICC Insertion COMPARISON: Chest x-ray performed 06/08/18 TECHNIQUE: Chest, one view. FINDINGS: Right-sided PICC extends to the expected location of the right atrium. LUNGS: Hypoinflation. Biapical pleural thickening. No focal consolidation. Please note that chest x-ray has limited sensitivity for the detection of pulmonary masses. PLEURA: No significant pleural effusion identified. No definite pneumothorax . CARDIOVASCULAR: Cardiomegaly. Ectatic aorta. OSSEOUS STRUCTURES: Degenerative changes. Acromioclavicular arthropathy. VISUALIZED UPPER ABDOMEN: Unremarkable. OTHER FINDINGS: Right paratracheal opacity may reflect tortuous vasculature, alternatives including adenopathy not excluded. IMPRESSION: Right-sided PICC extends to the expected location of the right atrium. Hypoinflation. Biapical pleural thickening. Cardiomegaly. Ectatic aorta. Right paratracheal opacity may reflect tortuous vasculature, alternatives including adenopathy not excluded.
[2018-07-16 17:18] VITALS: RESP 20
--- NOTE | 2018-07-16 23:31 | CP.PCM.PN ---
Subjective - Date & Time of Evaluation Date of Evaluation: 07/16/18 Time of Evaluation: 23:31 - Subjective Subjective: CHIEF COMPLAINTS TODAY : POD # 2 AFEBRILE, LOOKS COMFORTABLE. SEEN BY ORTHO. DRESSING CHANGED . S/P PICC LINE ROS. HEENT : N. Resp : No cough, wheezing ,pleuritic CP ,or hemoptysis Cardio : No anginal CP, PND, orthopnea, palpitation GI : No abd.pain, n/v ,diarrhea or GI bleeding . 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 Musculoskel : No joint swelling , Derm : No rash Psych : Normal affect. Ext : No swelling ,calf pain RT KNEE AND LEG IN LYNNE BANDAGE PE. Pt. is alert awake in no distress. V.S As noted in the chart Head ,ear nose,throat and eyes : Normal. Neck : Supple with normal carotids. Lungs: Clear air entry. Heart : S1 & S2 normal with S4. No murmur. Abd : Soft non tender with normal bowel sounds. Neuro : Moves all ext. with no localized deficit. Ext : No edema with intact pulses.Non tender calves . RT KNEE AND LEG IN LYNNE BANDAGE Derm : No rashes or decubitus ulcer. LABS/RADIOLOGY: REVIEWED. ESR 55 CRP 64.20 UA -VE Objective - Vital Signs/Intake and Output Vital Signs (last 24 hours): Temp Pulse Resp BP Pulse Ox 98.2 F 85 20 110/69 96 07/16/18 15:00 07/16/18 15:00 07/16/18 15:00 07/16/18 15:00 07/16/18 15:00 Intake and Output: 07/16/18 07/17/18 18:59 06:59 Intake Total 720 Balance 720 - Medications Medications: Current Medications Acetaminophen (Tylenol 325mg Tab) 650 mg PO Q6 [facility] Last Admin: 07/16/18 17:55 Dose: 650 mg Apixaban (Eliquis) 2.5 mg PO BID [facility] Last Admin: 07/16/18 17:56 Dose: 2.5 mg Docusate Sodium (Colace) 100 mg PO BID [facility] Last Admin: 07/16/18 17:56 Dose: 100 mg Hydrochlorothiazide (Microzide) 12.5 mg PO DAILY [facility] Last Admin: 07/16/18 11:12 Dose: 12.5 mg Hydromorphone HCl (Dilaudid) 1 mg IVP Q4H PRN PRN Reason: Pain, severe (8-10) Vancomycin/Sodium Chloride (Vancomycin 1 Gm/Ns 200 Ml) 1 gm in 200 mls @ 133 mls/hr IVPB Q12H [facility]; Protocol Stop: 08/27/18 18:31 Last Admin: 07/16/18 17:56 Dose: 133 mls/hr Losartan Potassium (Cozaar) 50 mg PO DAILY [facility] Last Admin: 07/16/18 11:12 Dose: 50 mg Multivitamins (Hexavitamin) 1 tab PO DAILY [facility] Last Admin: 07/16/18 11:11 Dose: 1 tab Ondansetron HCl (Zofran Inj) 4 mg IVP ONCE PRN PRN Reason: Nausea/Vomiting Oxycodone HCl (Oxycodone Immediate Release Tab) 5 mg PO Q4 PRN PRN Reason: Pain, Mild (1-3) Oxycodone HCl (Oxycodone Immediate Release Tab) 10 mg PO Q4 PRN PRN Reason: Pain, moderate (4-7) Last Admin: 07/16/18 12:16 Dose: 10 mg Pneumococcal Polyvalent Vaccine (Pneumovax 23 Vaccine) 0.5 ml IM .ONCE ONE Stop: 07/17/18 11:01 Pregabalin (Lyrica) 50 mg PO BID [facility] Last Admin: 07/16/18 17:56 Dose: 50 mg Rosuvastatin Calcium (Crestor) 5 mg PO HS [facility] Last Admin: 07/16/18 22:22 Dose: 5 mg - Labs Labs: 07/16/18 05:34 07/16/18 05:34 Assessment and Plan (1) 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 S/P RIGHT KNEE JOINT WITH REVISION AND RT. TKR/AND WOUND VAC 07/14/18. CONTINUE IV VANCOMYCIN 1 G EVERY 12 HOURLY 07/15/18 TO COVER FOR SCN,STAPH AUREUS MSSA/MRSA AND SKIN BENITO. PREVIOUS CULTURES AND TISSUE GRAM STAINS AND CULTURES FROM 11/18/17 ALL NEGATIVE TO DATE FOR BACTERIA,FUNGUS,AFB. F/U RECENT CULTURES TAKEN IN OR. PATIENT WILL NEED 6 WEEKS IV VANCOMYCIN-1 g every 12 hourly. F/U BY ORAL KEFLEX 500MG PO TID X 8-12WKS TENTATIVELY. F/U VANCO TROUGH PRIOR TO THE FOURTH DOSE AND KEEP BETWEEN 10 AND 20 G/ML MONITOR RENAL FUNCTIONS / CBC W DIFF CLOSELY fOLLOW-UP CULTURES TO ADJUST ANTIBIOTICS.. LWC /WOUND VAC PER ORTHO. I WILL BE FOLLOWING PT WHILE IN HOSPITAL. Status: Acute (2) Nickel allergy Status: Acute (3) HTN (hypertension) Status: Chronic (4) Hyperlipidemia Status: Chronic
[2018-07-17] MEDS: Vancomycin 1 gm/NS 200 ml 1 GM/200 ML BAG IVPB SCH (05:29)
[2018-07-17] MEDS: oxyCODONE 10 mg Immediate Release Tab PO PRN (05:32)
[2018-07-17 08:05] LABS: BASO % 0.4 % (0.0-2.0); EOS # 0.3 K/uL (0.0-0.7); EOS % 4.6 % (0.0-4.0); HEMOGLOBIN 8.2 g/dL (11.0-16.0); LYMPH # 1.2 K/uL (1.0-4.3); LYMPH % 18.3 % (20.0-40.0); MEAN CELL VOLUME 79.2 fL (81.0-99.0); MEAN CORPUSCULAR HEMOGLOBIN 26.1 pg (27.0-31.0); MEAN PLATELET VOLUME 8.5 fL (7.2-11.7); MONO # 0.4 K/uL (0.0-0.8); MONO % 6.9 % (0.0-10.0); NEUT # 4.5 K/uL (1.8-7.0); NEUT % 69.8 % (50.0-75.0); RBC 3.13 Mil/uL (3.80-5.20); RED CELL DISTRIBUTION WIDTH 16.4 % (11.5-14.5); WHITE BLOOD COUNT 6.5 K/uL (4.8-10.8)
[2018-07-17 08:15] LABS: BLOOD UREA NITROGEN 7 mg/dL (7-17); CALCIUM 8.6 mg/dl (8.6-10.4); GFR NON-AFRICAN AMERICAN > 60
--- NOTE | 2018-07-17 08:56 | CP.PCM.PN ---
Subjective - Date & Time of Evaluation Date of Evaluation: 07/17/18 Time of Evaluation: 08:56 - Subjective Subjective: Patient comfortable. Denies CP/SOB/dizziness. admits to headache Objective - Vital Signs/Intake and Output Vital Signs (last 24 hours): Temp Pulse Resp BP Pulse Ox 99.0 F 96 H 20 146/79 99 07/17/18 08:22 07/17/18 08:22 07/17/18 08:22 07/17/18 08:22 07/17/18 08:22 Intake and Output: 07/17/18 07/17/18 06:59 18:59 Intake Total 350 Balance 350 - Medications Medications: Current Medications Acetaminophen (Tylenol 325mg Tab) 650 mg PO Q6 [facility] Last Admin: 07/17/18 05:36 Dose: Not Given Apixaban (Eliquis) 2.5 mg PO BID [facility] Last Admin: 07/16/18 17:56 Dose: 2.5 mg Docusate Sodium (Colace) 100 mg PO BID [facility] Last Admin: 07/16/18 17:56 Dose: 100 mg Hydrochlorothiazide (Microzide) 12.5 mg PO DAILY [facility] Last Admin: 07/16/18 11:12 Dose: 12.5 mg Hydromorphone HCl (Dilaudid) 1 mg IVP Q4H PRN PRN Reason: Pain, severe (8-10) Vancomycin/Sodium Chloride (Vancomycin 1 Gm/Ns 200 Ml) 1 gm in 200 mls @ 133 mls/hr IVPB Q12H [facility]; Protocol Stop: 08/27/18 18:31 Last Admin: 07/17/18 05:29 Dose: 133 mls/hr Losartan Potassium (Cozaar) 50 mg PO DAILY [facility] Last Admin: 07/16/18 11:12 Dose: 50 mg Multivitamins (Hexavitamin) 1 tab PO DAILY [facility] Last Admin: 07/16/18 11:11 Dose: 1 tab Ondansetron HCl (Zofran Inj) 4 mg IVP ONCE PRN PRN Reason: Nausea/Vomiting Oxycodone HCl (Oxycodone Immediate Release Tab) 5 mg PO Q4 PRN PRN Reason: Pain, Mild (1-3) Oxycodone HCl (Oxycodone Immediate Release Tab) 10 mg PO Q4 PRN PRN Reason: Pain, moderate (4-7) Last Admin: 07/17/18 05:32 Dose: 10 mg Pneumococcal Polyvalent Vaccine (Pneumovax 23 Vaccine) 0.5 ml IM .ONCE ONE Stop: 07/17/18 11:01 Pregabalin (Lyrica) 50 mg PO BID [facility] Last Admin: 07/16/18 17:56 Dose: 50 mg Rosuvastatin Calcium (Crestor) 5 mg PO HS [facility] Last Admin: 07/16/18 22:22 Dose: 5 mg - Labs Labs: 07/17/18 07:53 07/17/18 07:53 - Extremities Exam Additional comments: right knee: ANGEL intact, +ROM ankle/toes, sensation intact, calves soft NT neg homans +DP/PT pulses Assessment and Plan (1) 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 Martinez PICC placed ANGEL dressing to be removed friday 07/20 and dry sterile dressing placed f/u Dr. Clancy 7-10 days, call for appt d/w Dr. Clancy, agrees with above Status: Acute (2) Nickel allergy Status: Acute (3) HTN (hypertension) Status: Chronic
--- NOTE | 2018-07-17 09:46 | CP.PCM.DIS ---
Provider - Provider Date of Admission: 07/14/18 11:23 Attending physician: Félix Clancy MD Primary care physician: Dr. Yash Hua Consults: Dr. 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 Status: Acute (2) Nickel allergy Status: Acute (3) HTN (hypertension) Status: Chronic (4) Acute blood loss anemia Status: Acute Comment: hemodynamically stable Hospital Course - Lab Results Lab Results: Micro Results 07/16/18 05:35 Urine,Clean Catch Urine Culture - Final No Growth (<1,000 CFU/ML) 07/16/18 05:56 Blood-Venous Blood Culture - Preliminary NO GROWTH AFTER 24 HOURS 07/16/18 05:55 Blood-Venous Blood Culture - Preliminary NO GROWTH AFTER 24 HOURS Most Recent Lab Values WBC 6.5 K/uL (4.8-10.8) 07/17/18 07:53 RBC 3.13 Mil/uL (3.80-5.20) L 07/17/18 07:53 Hgb 8.2 g/dL (11.0-16.0) L 07/17/18 07:53 Hct 24.8 % (34.0-47.0) L 07/17/18 07:53 MCV 79.2 fL (81.0-99.0) L 07/17/18 07:53 MCH 26.1 pg (27.0-31.0) L 07/17/18 07:53 MCHC 33.0 g/dL (33.0-37.0) 07/17/18 07:53 RDW 16.4 % (11.5-14.5) H 07/17/18 07:53 Plt Count 181 K/uL (130-400) 07/17/18 07:53 MPV 8.5 fL (7.2-11.7) 07/17/18 07:53 Neut % (Auto) 69.8 % (50.0-75.0) 07/17/18 07:53 Lymph % (Auto) 18.3 % (20.0-40.0) L 07/17/18 07:53 [place] % (Auto) 6.9 % (0.0-10.0) 07/17/18 07:53 Eos % (Auto) 4.6 % (0.0-4.0) H 07/17/18 07:53 Baso % (Auto) 0.4 % (0.0-2.0) 07/17/18 07:53 Neut # (Auto) 4.5 K/uL (1.8-7.0) 07/17/18 07:53 Lymph # (Auto) 1.2 K/uL (1.0-4.3) 07/17/18 07:53 [place] # (Auto) 0.4 K/uL (0.0-0.8) 07/17/18 07:53 Eos # (Auto) 0.3 K/uL (0.0-0.7) 07/17/18 07:53 Baso # (Auto) 0.0 K/uL (0.0-0.2) 07/17/18 07:53 Neutrophils % (Manual) 87 % (50-75) H 07/15/18 07:43 Band Neutrophils % 1 % (0-2) 07/15/18 07:43 Lymphocytes % (Manual) 9 % (20-40) L 07/15/18 07:43 Monocytes % (Manual) 2 % (0-10) 07/15/18 07:43 Basophils % (Manual) 1 % (0-2) 07/15/18 07:43 Platelet Estimate Normal (NORMAL) 07/15/18 07:43 Hypochromasia (manual) Slight 07/15/18 07:43 Poikilocytosis (manual Slight 07/15/18 07:43 Anisocytosis (manual) Slight 07/15/18 07:43 Ovalocytes Slight 07/15/18 07:43 ESR 55 mm/hr (0-20) H 07/16/18 05:34 Sodium 139 mmol/L (132-148) 07/17/18 07:53 Potassium 3.8 mmol/L (3.6-5.2) 07/17/18 07:53 Chloride 103 mmol/L (98-107) 07/17/18 07:53 Carbon Dioxide 32 mmol/L (22-30) H 07/17/18 07:53 Anion Gap 8 (10-20) L 07/17/18 07:53 BUN 7 mg/dL (7-17) 07/17/18 07:53 Creatinine 0.5 mg/dL (0.7-1.2) L 07/17/18 07:53 Est GFR ( Amer) > 60 07/17/18 07:53 Est GFR (Non-Af Amer) > 60 07/17/18 07:53 Random Glucose 94 mg/dL (65-105) 07/17/18 07:53 Calcium 8.6 mg/dl (8.6-10.4) 07/17/18 07:53 C-Reactive Protein 64.20 mg/L (0.0-9.9) H 07/16/18 05:34 25-OH Vitamin D Total 36.4 NG/ML (30.0-100.0) 07/15/18 07:43 Urine Color Yellow (YELLOW) 07/16/18 05:35 Urine Clarity Clear (Clear) 07/16/18 05:35 Urine pH 6.0 (5.0-8.0) 07/16/18 05:35 Ur Specific [place] 1.011 (1.003-1.030) 07/16/18 05:35 Urine Protein Negative mg/dL (NEGATIVE) 07/16/18 05:35 Urine Glucose (UA) Normal mg/dL (Normal) 07/16/18 05:35 Urine Ketones Negative mg/dL (NEGATIVE) 07/16/18 05:35 Urine Blood Negative (NEGATIVE) 07/16/18 05:35 Urine Nitrate Negative (NEGATIVE) 07/16/18 05:35 Urine Bilirubin Negative (NEGATIVE) 07/16/18 05:35 Urine Urobilinogen Normal mg/dL (0.2-1.0) 07/16/18 05:35 Ur Leukocyte Esterase Neg [place]/uL (Negative) 07/16/18 05:35 Urine WBC (Auto) 2 /hpf (0-5) 07/16/18 05:35 Urine RBC (Auto) 2 /hpf (0-3) 07/16/18 05:35 Ur Squamous Epith Cells < 1 /hpf (0-5) 07/16/18 05:35 Urine Bacteria Rare (<OCC) 07/16/18 05:35 Hyaline Casts 0-2 /lpf (0-2) 07/16/18 05:35 Blood Type O POSITIVE 07/14/18 12:40 Antibody Screen Negative 07/14/18 12:40 - Hospital Course Hospital Course: 68F with PMH: HTN with s/p explant right knee found to have nickel allergy s/p revision right TKR. Postoperative imaging demonstrated acceptable position of prosthesis. Medical consultation was requested for post operative medical management. ID consultation for preventative antibiotics terminal superintendent. PICC placed HTN controlled throughout admission. Patients post operative course was complicated by acute blood loss anemia, hemodynamically stable and well tolerated, no treatment needed. Patient tolerated PT/OT well. Patient received VTE prophylaxis in the form of lovenox 40mg SQ q24h and venodynes. Patient was instructed to maintain knee immobilizer at night, to remove during the day, and instructed patient to continue aggressive ROM of the knee. Patient was discharged with ANGEL wound vac device, and given instructions for removal of wound vac and application of dry sterile dressing on Friday 07/20 POD#6. Discharge Exam - Head Exam Head Exam: NORMAL INSPECTION Discharge Plan - Follow Up Plan Condition: GOOD Disposition: HOME/ ROUTINE
[2018-07-17] MEDS: Multiple Vitamins Tab PO SCH (10:25)
[2018-07-17] MEDS ORDERED: Pneumococcal 23-Valent Vaccine IM ONE ×2 (11:00→12:30)
--- NOTE | 2018-07-17 11:06 | CP.PCM.PN ---
Subjective - Date & Time of Evaluation Date of Evaluation: 07/17/18 Time of Evaluation: 11:06 - Subjective Subjective: CHIEF COMPLAINTS TODAY : POD # 3 AFEBRILE, LOOKS COMFORTABLE. CASE DISCUSSED WITH ORTHO. DR BARAHONA S/P PICC LINE 07/16/18 CASE DISCUSSED WITH MS. BENEDICT MITCHELL. AND DISCHARGE ABX ORDERS DISCUSSED WITH HER . MYA. HEENT : N. Resp : No cough, wheezing ,pleuritic CP ,or hemoptysis Cardio : No anginal CP, PND, orthopnea, palpitation GI : No abd.pain, n/v ,diarrhea or GI bleeding . 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 Musculoskel : No joint swelling , Derm : No rash Psych : Normal affect. Ext : No swelling ,calf pain RT KNEE AND LEG IN LYNNE BANDAGE PE. Pt. is alert awake in no distress. V.S As noted in the chart Head ,ear nose,throat and eyes : Normal. Neck : Supple with normal carotids. Lungs: Clear air entry. Heart : S1 & S2 normal with S4. No murmur. Abd : Soft non tender with normal bowel sounds. Neuro : Moves all ext. with no localized deficit. Ext : No edema with intact pulses.Non tender calves . RT KNEE AND LEG IN LYNNE BANDAGE Derm : No rashes or decubitus ulcer. LABS/RADIOLOGY: REVIEWED. ESR 55 CRP 64.20 UA -VE Objective - Vital Signs/Intake and Output Vital Signs (last 24 hours): Temp Pulse Resp BP Pulse Ox 99.0 F 96 H 20 146/79 99 07/17/18 08:22 07/17/18 08:22 07/17/18 08:22 07/17/18 08:22 07/17/18 08:22 Intake and Output: 07/17/18 07/17/18 06:59 18:59 Intake Total 350 Balance 350 - Medications Medications: Current Medications Acetaminophen (Tylenol 325mg Tab) 650 mg PO Q6 [facility] Last Admin: 07/17/18 05:36 Dose: Not Given Apixaban (Eliquis) 2.5 mg PO BID [facility] Last Admin: 07/17/18 10:25 Dose: 2.5 mg Docusate Sodium (Colace) 100 mg PO BID [facility] Last Admin: 07/17/18 10:25 Dose: 100 mg Hydrochlorothiazide (Microzide) 12.5 mg PO DAILY [facility] Last Admin: 07/17/18 10:25 Dose: 12.5 mg Hydromorphone HCl (Dilaudid) 1 mg IVP Q4H PRN PRN Reason: Pain, severe (8-10) Vancomycin/Sodium Chloride (Vancomycin 1 Gm/Ns 200 Ml) 1 gm in 200 mls @ 133 mls/hr IVPB Q12H [facility]; Protocol Stop: 08/27/18 18:31 Last Admin: 07/17/18 05:29 Dose: 133 mls/hr Losartan Potassium (Cozaar) 50 mg PO DAILY [facility] Last Admin: 07/17/18 10:25 Dose: 50 mg Multivitamins (Hexavitamin) 1 tab PO DAILY [facility] Last Admin: 07/17/18 10:25 Dose: 1 tab Ondansetron HCl (Zofran Inj) 4 mg IVP ONCE PRN PRN Reason: Nausea/Vomiting Oxycodone HCl (Oxycodone Immediate Release Tab) 5 mg PO Q4 PRN PRN Reason: Pain, Mild (1-3) Oxycodone HCl (Oxycodone Immediate Release Tab) 10 mg PO Q4 PRN PRN Reason: Pain, moderate (4-7) Last Admin: 07/17/18 05:32 Dose: 10 mg Pregabalin (Lyrica) 50 mg PO BID [facility] Last Admin: 07/17/18 10:25 Dose: 50 mg Rosuvastatin Calcium (Crestor) 5 mg PO HS [facility] Last Admin: 07/16/18 22:22 Dose: 5 mg - Labs Labs: 07/17/18 07:53 07/17/18 07:53 Assessment and Plan (1) 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 S/P RIGHT KNEE JOINT WITH REVISION AND RT. TKR/AND WOUND VAC 07/14/18. CONTINUE IV VANCOMYCIN 1 G EVERY 12 HOURLY 07/15/18 TO COVER FOR SCN,STAPH AUREUS MSSA/MRSA AND SKIN BENITO. PREVIOUS CULTURES AND TISSUE GRAM STAINS AND CULTURES FROM 11/18/17 ALL NEGATIVE TO DATE FOR BACTERIA,FUNGUS,AFB. F/U RECENT CULTURES TAKEN IN OR. ADD IV ROCEPHIN 2GM IVPB [id number] X 6WEEKS. 07/17/18 (1 STAT DOSE ) PATIENT WILL NEED IV VANCOMYCIN-1 g every 12 hourly X 6WEEKS F/U BY ORAL KEFLEX 500MG PO TID X 8-12WKS TENTATIVELY. F/U VANCO TROUGH PRIOR TO THE FOURTH DOSE AND KEEP BETWEEN 10 AND 20 G/ML MONITOR RENAL FUNCTIONS / CBC W DIFF CLOSELY fOLLOW-UP CULTURES TO ADJUST ANTIBIOTICS.. LWC /WOUND VAC PER ORTHO. I WILL BE FOLLOWING PT WHILE IN HOSPITAL PT FOR [facility] - [facility] TODAY REPORTED. Status: Acute (2) Nickel allergy Status: Acute (3) HTN (hypertension) Status: Chronic (4) Hyperlipidemia Status: Chronic
[2018-07-17] MEDS ORDERED: cefTRIAXone 2 GM in Sodium Chloride 0.9% 100 ML IVPB SCH (12:00)
--- NOTE | 2018-07-17 12:24 | CP.PCM.PN ---
Subjective - Date & Time of Evaluation Date of Evaluation: 07/17/18 Time of Evaluation: 12:23 - Subjective Subjective: D/C COMPLETED BY ORTHO CANDICE. CAR SALESPERSON CALLED BY DR. DANIELS (ID) TO CLARIFYING THE ABX DURATION FOR D/C. SEE BELOW FOR ID RECOMMENDATIONS. NO FURTHER ORDERS. -PER DR. DANIELS'S RECOMMENDATIONS, CONTINUE THE FOLLOWING ANTIBIOTIC REGIMEN: VANCOMYCIN 1 GM IV Q12 HOURS X6 WEEKS (STARTED ON 07/17/18-END ON 08/28/18); ROCEPHIN 2 GM IV DAILY X6 WEEKS (STARTED ON 07/17/18-END ON 08/28/18); AFTER THE IV ANTIBIOTICS ARE COMPLETED BEGIN KEFLEX 500 MG PO TID X8 WEEKS (START ON 08/29/18 AND LAST DOSE TO BE GIVEN ON 10/24/18). -PLEASE DO CBC, CMP, CRP, SED RATE EVERY WEEK X6 WEEKS. RESULTS TO BE FOLLOWED BY ATTENDING. Objective - Vital Signs/Intake and Output Vital Signs (last 24 hours): Temp Pulse Resp BP Pulse Ox 99.0 F 96 H 20 146/79 99 07/17/18 08:22 07/17/18 08:22 07/17/18 08:22 07/17/18 08:22 07/17/18 08:22 Intake and Output: 07/17/18 07/17/18 06:59 18:59 Intake Total 350 Balance 350 - Medications Medications: Current Medications Acetaminophen (Tylenol 325mg Tab) 650 mg PO Q6 [facility] Last Admin: 07/17/18 05:36 Dose: Not Given Apixaban (Eliquis) 2.5 mg PO BID [facility] Last Admin: 07/17/18 10:25 Dose: 2.5 mg Docusate Sodium (Colace) 100 mg PO BID [facility] Last Admin: 07/17/18 10:25 Dose: 100 mg Hydrochlorothiazide (Microzide) 12.5 mg PO DAILY [facility] Last Admin: 07/17/18 10:25 Dose: 12.5 mg Hydromorphone HCl (Dilaudid) 1 mg IVP Q4H PRN PRN Reason: Pain, severe (8-10) Vancomycin/Sodium Chloride (Vancomycin 1 Gm/Ns 200 Ml) 1 gm in 200 mls @ 133 mls/hr IVPB Q12H [facility]; Protocol Stop: 08/27/18 18:31 Last Admin: 07/17/18 05:29 Dose: 133 mls/hr Ceftriaxone Sodium 2 gm/ (Sodium Chloride) 100 mls @ 100 mls/hr IVPB DAILY [facility]; Protocol Influenza Virus Vaccine (Fluzone Quad [id number]) 60 mcg IM .ONCE ONE Stop: 07/17/18 13:01 Losartan Potassium (Cozaar) 50 mg PO DAILY [facility] Last Admin: 07/17/18 10:25 Dose: 50 mg Multivitamins (Hexavitamin) 1 tab PO DAILY [facility] Last Admin: 07/17/18 10:25 Dose: 1 tab Ondansetron HCl (Zofran Inj) 4 mg IVP ONCE PRN PRN Reason: Nausea/Vomiting Oxycodone HCl (Oxycodone Immediate Release Tab) 5 mg PO Q4 PRN PRN Reason: Pain, Mild (1-3) Oxycodone HCl (Oxycodone Immediate Release Tab) 10 mg PO Q4 PRN PRN Reason: Pain, moderate (4-7) Last Admin: 07/17/18 05:32 Dose: 10 mg Pregabalin (Lyrica) 50 mg PO BID [facility] Last Admin: 07/17/18 10:25 Dose: 50 mg Rosuvastatin Calcium (Crestor) 5 mg PO HS [facility] Last Admin: 07/16/18 22:22 Dose: 5 mg - Labs Labs: 07/17/18 07:53 07/17/18 07:53
[2018-07-17] MEDS ORDERED: Influenza Vaccine 60 MCG/0.5 ML SYR (3 yr & up) IM ONE (13:00)
[2018-07-17 15:55] VITALS: BP 127/64; PULSE 81; TEMP 98.2; O2SAT 100
== END 2018-07-17 16:39 | DRG 468 ==
LOC: C.9S 07-14 11:23 → C.6T 07-14 21:56
PROVIDERS: ADMIT Orthopaedic Surgery; ATTEND Orthopaedic Surgery
PROC: 0SWC0JZ Revision of Synthetic Substitute in Right Knee Joint, Open Approach (ICD-10-PCS; 2018-07-14)
PROC: 0SPC08Z Removal of Spacer from Right Knee Joint, Open Approach (ICD-10-PCS; principal; 2018-07-14 14:00)
PROC: 02HV33Z Insertion of Infusion Device into Superior Vena Cava, Percutaneous Approach (ICD-10-PCS; 2018-07-16)
DX: T84.052A Periprosthetic osteolysis of internal prosthetic right knee joint, initial encounter (principal); I10 Essential (primary) hypertension; E78.5 Hyperlipidemia, unspecified; M17.11 Unilateral primary osteoarthritis, right knee; M89.561 Osteolysis, right lower leg

== ENCOUNTER 2019-02-02 06:15 | Day surgery (SDC) | payer MEDICARE ==
--- NOTE | 2019-02-02 07:24 | CP.PCM.HP ---
History of Present Illness - History of Present Illness History of Present Illness: 68 F s/p arthrofibrosis of revision right total knee, elected for a manipulation under anesthesia. NDKA Present on Admission - Present on Admission Any Indicators Present on Admission: No History of DVT/PE: No History of Uncontrolled Diabetes: No Past Patient History - Past Medical History & Family History Past Medical History?: Yes - Past Social History Smoking Status: Never Smoked - CARDIAC Hx Cardiac Disorders: Yes Hx Hypertension: Yes - PULMONARY Hx Respiratory Disorders: No - NEUROLOGICAL Hx Neurological Disorder: No - HEENT Hx HEENT Problems: No - RENAL Hx Chronic Kidney Disease: No - ENDOCRINE/METABOLIC Hx Endocrine Disorders: No - HEMATOLOGICAL/ONCOLOGICAL Hx Blood Disorders: No Hx Blood Transfusions: Yes Hx Blood Transfusion Reaction: No - INTEGUMENTARY Hx Dermatological Problems: No - MUSCULOSKELETAL/RHEUMATOLOGICAL Hx Arthritis: Yes - GASTROINTESTINAL Hx Gastrointestinal Disorders: No - GENITOURINARY/GYNECOLOGICAL Hx Genitourinary Disorders: No - PSYCHIATRIC Hx Substance Use: No - SURGICAL HISTORY Hx Surgeries: Yes Hx Section: Yes Hx Joint Replacement: Yes (RIGHT TOTAL KNEE REPLACEMENT ) Hx Vascular Access Device: Yes (PICC LINE/REMOVED) Other/Comment: REMOVAL KNEE REPLACEMENT/SPACER IN - ANESTHESIA Hx Anesthesia: Yes Hx Anesthesia Reactions: No Hx Malignant Hyperthermia: No Meds Allergies/Adverse Reactions: Allergies Allergy/AdvReac Type Severity Reaction Status Date / Time No Known Allergies Allergy Verified 06/08/18 09:46 Physical Exam - Constitutional Appears: Well, No Acute Distress - Head Exam Head Exam: ATRAUMATIC, NORMAL INSPECTION, NORMOCEPHALIC - Respiratory Exam Respiratory Exam: NORMAL BREATHING PATTERN - Cardiovascular Exam Cardiovascular Exam: RRR - Extremities Exam Additional comments: R knee: prior incision healed and intact. No obvious swelling. Patient has significant stiffness with only about 45-50 degrees of flexion, unable to perform extension due to stiffness. Calf and thigh soft and nontender. NVI distally Assessment & Plan (1) Arthrofibrosis of total knee arthroplasty Assessment and Plan: NPO after midnight OR for manipulation under anaesthesia Risks benefits and alternatives discussed. Patient states her understanding and would like to proceed Status: Acute
[2019-02-02 07:37] VITALS: BMI 23.8
[2019-02-02] MEDS ORDERED: Midazolam 2 MG/2 ML VIAL ONE (07:38)
[2019-02-02] MEDS ORDERED: Propofol 10 mg/ml Inj (20 ML) ONE (07:38)
[2019-02-02] MEDS ORDERED: Oxycodone/Acetaminophen 5/325 mg Tab PO PRN (08:00)
[2019-02-02] MEDS ORDERED: Morphine 4 MG/ML VIAL ONE (08:22)
--- NOTE | 2019-02-02 08:32 | PCM.SURG1 ---
Surgeon's Initial Post Op Note - Surgeon's Notes Surgeon: Maria G Clancy MD Rental Counter Clerk: David Dykes PA-C Type of Anesthesia: Moderate Sedation{RN} Pre-Operative Diagnosis: right knee arthrofibrosis s/p revision right total knee replacement Operative Findings: see full note Post-Operative Diagnosis: same Operation Performed: manipulation under anesthesia Specimen/Specimens Removed: none Estimated Blood Loss: EBL {In ML}: 0 Blood Products Given: N/A Drains Used: No Drains Post-Op Condition: Fair Date of Surgery/Procedure: 02/02/19 Time of Surgery/Procedure: 08:32
[2019-02-02] MEDS ORDERED: Ropivacaine 0.5% PF (20 ml) inj INJ ONE (08:39)
[2019-02-02] MEDS ORDERED: HYDROmorphone 0.5 mg/0.5 ml ISec IVP STA (09:01)
[2019-02-02] MEDS ORDERED: HYDROmorphone 0.5 mg/0.5 ml ISec ONE (09:02)
[2019-02-02] MEDS ORDERED: HYDROmorphone 0.5 mg/0.5 ml ISec IVP PRN (09:23)
--- NOTE | 2019-02-02 09:27 | PCM.ANESB7 ---
Adductor Canal Block - Adductor Canal Block Date of Procedure: 02/02/19 Anesthiologist: Ronna Pre-Procedure Diagnosis: s/p right knee manipulation under anesthesia Post-Procedure Diagnosis: same Procedure Performed: Adductor Canal Block Right - Procedure Adductor Canal Block: The procedure was explained to the patient that it is for the post-operative pain management. Consent was obtained after a thorough discussion with the patient regarding the benefits and possible complications of local anesthetic adductor canal block of the femoral nerve. Standard monitors, as defined by the ASA, were applied to the patient. Time-out was held with the PACU nurse to confirm the appropriate block. After applying supplemental oxygen, the patient was placed in supine position with and the operative leg was flexed slightly at the knee and externally rotated as needed, and was kept anatomically stable. The mid-thigh of the right lower extremity was exposed. The ultrasound transducer was then applied transversely along the medial aspect, about midway down the thigh and the femoral artery and vein were identified in appropriate relation with the sartorius muscle. At this time, the femoral nerve was visualized lateral to the femoral artery within the canal. After thorough identification, this area area was prepped with Chloroprep solution. At this point, a #22 gauge Stimuplex 4-inch needle was inserted in-plane in a [id number] orientation, and advanced toward the femoral nerve. Advancement was performed carefully under direct ultrasound visualization. After negative aspiration, 2cc of 0.5% Ropivacaine was injected and this was followed with 28 cc of 0.5% Ropivacaine. Negative intermittent aspirations, no heme or paresthesia. Under ultrasound guidance the local anesthetics were observed spreading around the femoral nerve. The needle was removed intact and sterile dressing was applied. The patient had stable vital signs, was conscious and in no apparent distress. The patient tolerated the femoral nerve block well with stable vital signs.
[2019-02-02] MEDS ORDERED: Labetalol 5mg/ml (4ml) IVP ONE (10:09)
[2019-02-02] MEDS ORDERED: Labetalol 25mg/5ml Syringe ONE (10:16)
--- NOTE | 2019-02-02 10:20 | RAD ---
Date of service: 02/02/2019 PROCEDURE: Right Knee Radiographs. HISTORY: s/p manipulation under anesthesia COMPARISON: 07/15/2018 right femur and right total knee replacement revision image 07/15/2018 TECHNIQUE: 2 views obtained. FINDINGS: BONES: Patient is status post total knee replacement no hardware fractures noted. The cement between the tibial intramedullary rosalva and the posterior lateral tibial cortex lucency is unchanged. The apparent cement lateral to the tibia and projecting over the fibula appear similar to that inferred extra osseous cement on the 07/15/2018 study. There is also faint lucency perceived along the lateral tibial cement and cortex that is difficult to ascertain with certainty on the prior study. However probable present on the prior study some tiny horizontal lucency compatible with a nondisplaced fracture of this lateral tibial metaphysis on current series 2590, image 3 is noted. The medial apparent extra osseous cement medial to the more distal portion of the tibial intramedullary rosalva is as before on the 07/16/2018 study. There is interval callus formation medial and lateral along the distal femoral diaphyseal aspect not seen as such on the prior study. Some relative increased relative radiolucency between the prosthesis and the cement on both sides at the same level this a medial lateral callus formation is noted. Interval nondisplaced fractures of this portion of the distal femur progressive loosening compared to the 07/16/2018 study is suggested. On the lateral bleak view there is interval horizontal fracture through the anterior callus at the anterior femoral knee condylar component with the remaining distal femoral cortex. There is some lucency changes here as well interval trauma interval fracture here nondisplaced is compatible with this. Findings are noted on current series 2590, image 4 when compared with prior 07/16/2018 series 206, image 5. The prior fracture fragment bordering the distal femoral metaphysis appears to have incorporated self with the diffuse prominent callus formation here. JOINTS: Inferred background osteoarthrosis. JOINT EFFUSION: Small joint effusion inferred. OTHER FINDINGS: S thin calcification almost splinter like osseous fragment anterior to the knee prosthesis on current series 2590, image 4 not appreciated such on the prior study. IMPRESSION: Multiple nondisplaced fractures. The most conspicuous interval fracture is that along the anterior distal femoral cortex and prosthetic junction. Other findings as above.
--- NOTE | 2019-02-02 10:55 | RAD ---
Date of service: 02/02/2019 PROCEDURE: Intraoperative Fluoroscopy. HISTORY: RT KNEE MANIPULATION FINDINGS: Fluoroscopic assistance was provided for right knee manipulation. Please refer to the operative report from MARIELLA Anderson.
[2019-02-02 14:44] VITALS: BP 155/69; PULSE 68; RESP 15; TEMP 97.8; O2SAT 99
--- NOTE | 2019-02-02 17:28 | OP ---
PROCEDURE DATE: 02/02/2019 PREOPERATIVE DIAGNOSIS: Right knee arthrofibrosis, status post revision right total knee replacement. POSTOPERATIVE DIAGNOSIS: Right knee arthrofibrosis, status post revision right total knee replacement. PROCEDURE: Right knee manipulation under anesthesia. SURGEON: Félix Clancy MD. TYPE OF ANESTHESIA: General. COMPLICATIONS: None. ESTIMATED BLOOD LOSS: Zero. INDICATIONS FOR PROCEDURE: This is a 68-year-old female who approximately 7 months ago, underwent revision right total knee replacement. Postoperatively, the patient developed significant loss of knee flexion despite aggressive physical therapy. Clinically, the patient was noted to have range of motion from approximately -5 to 15 degrees of knee flexion. Recommendations were for right knee manipulation under anesthesia. The risks, benefits, and alternatives of the procedure were discussed with the patient including the possibility of a periprosthetic fracture during manipulation and informed consent was obtained. DESCRIPTION OF PROCEDURE: After the surgical site was signed and verified in the preoperative holding area, the patient was taken to the operating room and placed supine on the operating room table. After the initiation of general anesthesia, manipulation was done. The patient was noted again prior to the manipulation to have -5 to 15 degrees or so of knee flexion. At this point by applying steady and firm flexion, after several attempts, the knee was able to bend to approximately 92 to 93 degrees of passive knee flexion. The patient was also noted to have by applying with the knee in extension downward pressure over the knee joint, the patient was noted to get to 0 degrees of extension. This procedure was repeated a few times and C-arm images were taken to confirm that there was no periprosthetic fracture. Adductor canal block was performed. The patient was awakened and taken to recovery room in stable condition.. Félix Clancy MD
== END 2019-02-02 16:15 | disposition home or self-care (01) ==
LOC: C.SDS 06:15
PROVIDERS: ATTEND Orthopaedic Surgery
DX: M24.661 Ankylosis, right knee (principal); I10 Essential (primary) hypertension; Z96.651 Presence of right artificial knee joint
CPT/HCPCS: 27570; 73560; 97110; 97162; G8978; G8979; G8980; J1170; J2250; J2270; J2704; J2765; J3010